=== PATIENT | female | born 1990 | race Caucasian/White ===

== ENCOUNTER 2017-02-26 16:17 | Emergency (ER) | payer BC, OTHER ==
--- NOTE | 2017-02-26 18:08 | ER Document Report ---
HPI - HPI Patient complains to provider of: dermal implant inflammation Onset: Other - several months Onset/Duration: Gradual Quality of pain: Throbbing Pain Level: 4 Context: 26-year-old female has 2 dermal subcutaneous implants supraclavicular right area. They have been there for over a year but recently the tried to change the tops and they have been inflamed ever since. She wants them out. Associated Symptoms: None Exacerbated by: Movement Relieved by: Denies Similar symptoms previously: No Recently seen / treated by doctor: No - ROS ROS below otherwise negative: Yes Systems Reviewed and Negative: Yes All other systems reviewed and negative - REPRODUCTIVE Reproductive: DENIES: : - DERM Skin Color: Normal Past Medical History - General Information source: Patient - Social History Smoking Status: Unknown if Ever Smoked Frequency of alcohol use: None Drug Abuse: None Lives with: Parents Family History: Reviewed & Not Pertinent - Medical History Medical History: Negative Renal/ Medical History: Denies: Hx Peritoneal Dialysis Past Surgical History: Reports: Hx Gastric Bypass Surgery - Immunizations Hx Diphtheria, Pertussis, Tetanus Vaccination: Yes Vertical Provider Document - CONSTITUTIONAL Agree With Documented VS: Yes Exam Limitations: No Limitations - INFECTION CONTROL TRAVEL OUTSIDE OF THE [place] IN LAST 30 DAYS: No - HEENT HEENT: Normocephalic - NECK Neck: Supple - RESPIRATORY O2 Sat by Pulse Oximetry: 100 - NEURO Level of Consciousness: Awake, Alert, Appropriate - DERM Integumentary: Warm, Dry Adult Front & Back Diagram: 1 - 2 dermal implants in this location Notes: inflamed skin surrounding the superior implant Course - Re-evaluation Re-evalutation: 02/26/17 19:29 Procedure: betadine prep, 1% lidocaine local infiltration, 2mm incision to get the 2 dermal implants out of the right supraclavicular skin, ns scrub, 4 x 4 dressing - Vital Signs Vital signs: Temp Pulse Resp BP Pulse Ox 97.9 F 92 18 168/91 H 100 02/26/17 16:33 02/26/17 16:33 02/26/17 16:33 02/26/17 16:33 02/26/17 16:33 Discharge - Discharge Clinical Impression: dermal implant removal, Inflammation Condition: Good Disposition: HOME, SELF-CARE Instructions: Cephalexin ([facility]), Infections ([facility]) Additional Instructions: warm compress antibiotics to er any concerns keep covered Please complete the patient satisfaction survey if you get one, and return it.. If you do not receive a survey, then you can go to the [facility] website, [email or web address] and place your comments about your very good care. Thank you very much. It was a pleasure being your medical provider today. Prescriptions: Cephalexin Monohydrate [Keflex 500 mg Capsule] 500 mg PO QID #28 capsule Referrals: ZOE OSORIO MD [Primary Care Provider] - Follow up as needed
[2017-02-26] MEDS ORDERED: CEPHALEXIN 500 MG CAPSULE PO ONE (19:28)
[2017-02-26 19:45] VITALS: BP 139/77
== END 2017-02-26 19:44 | disposition home or self-care (01) ==
LOC: ER 16:17
PROC: 0HC5XZZ Extirpation of Matter from Chest Skin, External Approach (ICD-10-PCS; principal; 2017-02-26)
DX: L08.9 Local infection of the skin and subcutaneous tissue, unspecified (principal); Z98.84 Bariatric surgery status
CPT/HCPCS: 99283

== ENCOUNTER 2018-02-22 17:42 | Emergency (ER) | payer OTHER, BC ==
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
[2018-02-22] MEDS ORDERED: HYDROCODONE/ACETAMINOPHEN 7.5-325 MG TABLET PO ONE (20:05)
--- NOTE | 2018-02-22 20:55 | RADIOLOGY REPORT (SQ) ---
EXAM DESCRIPTION: CT CERVICAL SPINE WITHOUT COMPLETED DATE/TIME: 02/22/2018 8:45 pm REASON FOR STUDY: Neck pain COMPARISON: None. TECHNIQUE: Axial images acquired through the cervical spine without intravenous contrast. Images re viewed with lung, soft tissue and bone windows. Reconstructed coronal and sagittal MPR images review ed. Images stored on PACS. All CT scanners at this facility use dose modulation, iterative reconstruction, and/or weight based d osing when appropriate to reduce radiation dose to as low as reasonably achievable (ALARA). [facility]: Dose Right [facility]: CareDose [facility]: Dose Right [facility]: Teradose 4D [facility]: [employer] RADIATION DOSE: CT Rad equipment meets quality standard of care and radiation dose reduction techniq ues were employed. CTDIvol: 20.3 mGy. DLP: 435 mGy-cm. mGy. LIMITATIONS: None. FINDINGS: ALIGNMENT: Anatomic. MINERALIZATION: Normal. VERTEBRAL BODIES: No fractures or dislocation. DISCS: No significant disc disease. FACETS, LATERAL MASSES, POSTERIOR ELEMENTS: No fractures. No dislocation. No acute findings. HARDWARE: None in the spine. VISUALIZED RIBS: No fractures. LUNG APICES AND SOFT TISSUES: No significant or acute findings. OTHER: No other significant finding. IMPRESSION: NO ACUTE OR SIGNIFICANT FINDINGS IN THE CERVICAL SPINE. TECHNICAL DOCUMENTATION: JOB ID: [id number] Quality ID # [id number]: Final reports with documentation of one or more dose reduction techniques (e.g., Au tomated exposure control, adjustment of the mA and/or kV according to patient size, use of iterative reconstruction technique) 2010 [employer]- All Rights Reserved Reading location - IP/workstation name: [email or web address]
[2018-02-22 21:54] VITALS: BP 134/80
== END 2018-02-22 21:54 | disposition home or self-care (01) ==
LOC: ER 17:42
DX: S02.2XXA Fracture of nasal bones, initial encounter for closed fracture (principal); M54.2 Cervicalgia; R51 Headache; R42 Dizziness and giddiness; V87.7XXA Person injured in collision between other specified motor vehicles (traffic), initial encounter; F17.200 Nicotine dependence, unspecified, uncomplicated
CPT/HCPCS: 70450; 70486; 72125; 99284

== ENCOUNTER 2018-10-20 16:11 | Emergency (ER) | payer OTHER, BC ==
--- NOTE | 2018-10-20 17:56 | RADIOLOGY REPORT (SQ) ---
EXAM DESCRIPTION: KNEE RIGHT 4 VIEWS COMPLETED DATE/TIME: 10/20/2018 5:44 pm REASON FOR STUDY: right anterior knee pain COMPARISON: None. NUMBER OF VIEWS: Four views. TECHNIQUE: AP, lateral, and both oblique radiographic images acquired of the right knee. LIMITATIONS: None. FINDINGS: MINERALIZATION: Normal. BONES: No acute fracture or dislocation. No worrisome bone lesions. No significant osteophytes. JOINT: No effusion. No chondrocalcinosis. OTHER: No other significant finding. IMPRESSION: NEGATIVE STUDY OF THE RIGHT KNEE. NO EXPLANATION FOR PAIN. TECHNICAL DOCUMENTATION: JOB ID: [id number] [employer]- All Rights Reserved Reading location - IP/workstation name: [email or web address]
[2018-10-20] MEDS ORDERED: ACETAMINOPHEN 325 MG TABLET PO ONE (18:11)
--- NOTE | 2018-10-20 18:34 | ER Document Report ---
HPI - HPI Time Seen by Provider: 10/20/18 17:07 Pain Level: 3 Notes: Patient is a 28-year-old female presenting with chief complaint of right anterior knee pain. Patient denies falling on the knee but states that she was carrying a heavy object at work when it swung down and struck her in the knee. She states this occurred yesterday. Pain has increased since then. - CONSTITUTIONAL Constitutional: DENIES: Fever, Chills - REPRODUCTIVE Reproductive: DENIES: : - MUSCULOSKELETAL Musculoskeletal: REPORTS: Extremity pain - right knee Past Medical History - General Information source: Patient - Social History Smoking Status: Current Every Day Smoker Frequency of alcohol use: None Drug Abuse: None Family History: Reviewed & Not Pertinent Patient has suicidal ideation: No Patient has homicidal ideation: No - Past Medical History Cardiac Medical History: Denies: Hx Coronary Artery Disease, Hx Heart Attack, Hx Hypertension Pulmonary Medical History: Denies: Hx Asthma, Hx Bronchitis, Hx COPD, Hx Pneumonia Neurological Medical History: Denies: Hx Cerebrovascular Accident, Hx Seizures Renal/ Medical History: Denies: Hx Peritoneal Dialysis Musculoskeletal Medical History: Denies Hx Arthritis Psychiatric Medical History: Reports: Hx Attention Deficit Hyperactivity Disorder Past Surgical History: Reports: Hx Abdominal Surgery - Gastric Bypass, Hx Gastric Bypass Surgery. Denies: Hx Hysterectomy - Immunizations Hx Diphtheria, Pertussis, Tetanus Vaccination: Yes Vertical Provider Document - CONSTITUTIONAL Notes: PHYSICAL EXAMINATION: GENERAL: Well-appearing, well-nourished and in no acute distress. HEAD: Atraumatic, normocephalic. EYES: Pupils equal round extraocular movements intact, conjunctiva are normal. ENT: Nares patent NECK: Normal range of motion LUNGS: No respiratory distress Musculoskeletal: Normal range of motion at knee, tenderness to palpation to anterior right knee, no crepitus or deformity noted. Normal dorsalis pedis pulse. NEUROLOGICAL: Normal speech, normal gait. PSYCH: Normal mood, normal affect. SKIN: Warm, Dry, normal turgor, no rashes or lesions noted. - INFECTION CONTROL TRAVEL OUTSIDE OF THE [place] IN LAST 30 DAYS: No Course - Re-evaluation Re-evalutation: X-rays negative for any acute findings to include fracture or dislocation. Patient will be placed in Fernando wrap and crutches. Patient encouraged to follow- up with primary care or orthopedics if her pain is not improving over the next 3 to 5 days. - Vital Signs Vital signs: Temp Pulse Resp BP Pulse Ox 98.2 F 93 16 152/94 H 99 10/20/18 16:19 10/20/18 16:19 10/20/18 16:19 10/20/18 16:19 10/20/18 16:19 Discharge - Discharge Clinical Impression: Knee contusion Condition: Stable Disposition: HOME, SELF-CARE Additional Instructions: Contusion Your injury has resulted in a contusion -- a crushing of the deep tissues. No injury to important structures was detected during the physician's exam. Contusions vary in the amount of pain they cause, and in the length of time required for healing. Typically, the area will become bruised, and will remain painful to touch for two or three weeks. However, most patients are back to working and playing within a few days. After the initial period of rest and cold-packs, your symptoms (together with the doctor's recommendations) will determine how rapidly you can get back to full activity. Usually this means "do what feels okay, but don't do things that hurt." If re-examination was recommended, it's important to follow up as instructed. Call the doctor or return any time if pain increases, if swelling becomes severe, if you develop numbness or weakness in an injured extremity, or if any other alarming symptoms occur. Ice & Elevation Apply ice packs frequently against the painful area. Many different schedules are recommended, such as "20 minutes on, 20 minutes off" or "one hour ice, two hours rest." If you need to work, you may need to go longer between ice treatments. You should plan to have the area ice packed AT LEAST one-fourth of the time. The ice should be applied over the wrap, tape, or splint, or over a layer of cloth -- not directly against the skin. Some ice bags have a built-in cloth and can be put directly on the skin. Your injured part should be elevated as much as possible over the next 48 hours. Try to keep the injury above the level of the heart. Avoid use of the injured area. Elevation and rest will decrease the swelling. Ibuprofen Ibuprofen is an excellent, safe drug for pain control. In addition, it has potent antiinflammatory effects which are beneficial, especially in the treatment of injuries, arthritis, or tendonitis. It's best to take ibuprofen with food. Persons with ulcer disease or allergy to aspirin should notify their physician of this before taking ibuprofen. Take the medication exactly as prescribed. Don't take additional doses unless instructed to do so by your doctor. If you develop wheezing, shortness of breath, hives, faintness, stomach pain, vomiting, or dark black stools, return for re-evaluation at once. The x-rays were negative for any fracture or dislocation. Please take ibuprofen [id number] as directed to help with pain and inflammation. Forms: Return to Work Referrals: MARIAAM LOWRY, [ACTIVE STAFF] - Follow up as needed
[2018-10-20 18:42] VITALS: BP 159/93
== END 2018-10-20 18:48 | disposition home or self-care (01) ==
LOC: ER 16:11
DX: S80.00XA Contusion of unspecified knee, initial encounter (principal); M25.561 Pain in right knee; W20.8XXA Other cause of strike by thrown, projected or falling object, initial encounter; Y93.89 Activity, other specified; Y99.0 Civilian activity done for income or pay; F17.200 Nicotine dependence, unspecified, uncomplicated; Z98.84 Bariatric surgery status
CPT/HCPCS: 99283

== ENCOUNTER 2018-11-25 20:50 | Emergency (ER) | payer BC, OTHER ==
[2018-11-25 22:25] LABS: ABSOLUTE EOSINOPHILS # (AUTO) 0.3 10^3/uL (0.0-0.6); ABSOLUTE MONOCYTES (AUTO) 0.6 10^3/uL (0.1-1.4); ABSOLUTE NEUT (AUTO) 4.1 10^3/uL (1.7-8.2); BASOPHILS % (AUTO) 0.6 % (0-2); EOSINOPHILS % (AUTO) 3.8 % (0-6); HEMATOCRIT 36.8 % (36.0-47.0); HEMOGLOBIN 12.4 g/dL (12.0-15.5); LYMPHOCYTES % (AUTO) 36.9 % (13-45); MEAN CORPUSCULAR HEMOGLOBIN 28.4 pg (27.0-33.4); MEAN CORPUSCULAR HGB CONC 33.6 g/dL (32.0-36.0); MEAN CORPUSCULAR VOLUME 85 fl (80-97); RED BLOOD COUNT 4.36 10^6/uL (3.72-5.28); RED CELL DISTRIBUTION WIDTH 16.2 % (11.5-14.0); SEGMENTED NEUTROPHILS % (AUTO) 51.7 % (42-78); TOTAL CELLS COUNTED % (AUTO) 100 %
[2018-11-25 22:54] LABS: PLATELET COUNT 251 10^3/uL (150-450)
[2018-11-25] MEDS ORDERED: ONDANSETRON HCL INJ/PF 4 MG/2 ML SDV IV ONE (23:03)
[2018-11-25] MEDS ORDERED: MORPHINE SULFATE 10 MG/ML INJ IV ONE (23:04)
--- NOTE | 2018-11-25 23:05 | ER Document Report ---
ED GI/ - General Chief Complaint: Flank Pain Stated Complaint: LEFT FLANK PAIN WITH DIFFICULTY URINATING Time Seen by Provider: 11/25/18 22:23 Primary Care Provider: ZOE OSORIO MD [Primary Care Provider] - Follow up as needed Mode of Arrival: Ambulatory Information source: Patient Notes: Patient presents complaining of left flank pain that started today and difficu lty voiding. Patient does complain of nausea but denies any vomiting. Patient denies any fever. Patient reports a distant history of kidney stones and states that this pain has felt similar to when she had stones in the past. TRAVEL OUTSIDE OF THE [place] IN LAST 30 DAYS: No - HPI Patient complains to provider of: Flank pain. No: Vomiting Onset: This morning Timing/Duration: Persistent Quality of pain: Sharp Pain Level: 4 Location: Left flank Vaginal bleeding (Compared to normal period): None Menstrual period history: denies: Associated symptoms: Dysuria, Nausea. 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 Denies: Hx Hysterectomy - Immunizations Hx Diphtheria, Pertussis, Tetanus Vaccination: Yes Review of Systems - Review of Systems Constitutional: No symptoms reported. denies: Fever EENT: No symptoms reported Cardiovascular: No symptoms reported Respiratory: No symptoms reported. denies: Cough Gastrointestinal: Nausea. denies: Vomiting Genitourinary: Dysuria, Flank pain Female Genitourinary: denies: Musculoskeletal: Back pain Skin: No symptoms reported Hematologic/Lymphatic: No symptoms reported Neurological/Psychological: No symptoms reported Physical Exam - Vital signs Vitals: Temp Pulse Resp BP Pulse Ox 98.2 F 85 20 154/116 H 98 11/25/18 21:02 11/25/18 21:02 11/25/18 21:02 11/25/18 21:02 11/25/18 21:02 - General General appearance: Appears well, Alert In distress: None - HEENT Head: Normocephalic, Atraumatic Eyes: Normal Conjunctiva: Normal Nasal: Normal Mouth/Lips: Normal Neck: Normal, Supple - Respiratory Respiratory status: No respiratory distress Chest status: Nontender Breath sounds: Normal. No: Rales, Rhonchi, Stridor, Wheezing Chest palpation: Normal - Cardiovascular Rhythm: Regular Heart sounds: S1 appreciated, S2 appreciated - Abdominal Inspection: Morbidly Obese Distension: No distension Bowel sounds: Normal Tenderness: Tender - L lateral side Organomegaly: No organomegaly - Back Back: CVA tenderness - left - Extremities General upper extremity: Normal inspection, Normal strength General lower extremity: Normal inspection, Normal strength - Neurological Neuro grossly intact: Yes Cognition: Normal [place] Coma Scale Eye Opening: Spontaneous Swathi Coma Scale Verbal: Oriented Swathi Coma Scale Motor: Obeys Commands [place] Coma Scale Total: 15 - Psychological Associated symptoms: Normal affect, Normal mood - Skin Skin Temperature: Warm Skin Moisture: Dry Skin Color: Normal Course - Re-evaluation Re-evalutation: 11/26/18 00:54 Patient complains of continued left flank pain at this time. Patient does have findings worrisome for UTI. No definite ureteral stone noted on CT scan. Patient with no fever, no leukocytosis and stable vital signs. We will culture her urine at this time and treat for pyelonephritis. Good return precautions discussed with patient. - Vital Signs Vital signs: Temp Pulse Resp BP Pulse Ox 97.6 F 67 16 160/92 H 99 11/26/18 01:50 11/26/18 01:50 11/26/18 01:50 11/26/18 01:50 11/26/18 01:50 - Laboratory Result Diagrams: 11/25/18 21:45 11/25/18 22:44 Laboratory results interpreted by me: 11/25/18 11/25/18 11/25/18 21:45 22:05 22:44 RDW 16.2 H Chloride 108 H BUN 6 L Creatinine 0.49 L Urine Protein 30 H Urine Blood LARGE H Ur Leukocyte Esterase MODERATE H 11/26/18 00:54 Labs- Entire Visit 11/25/18 11/25/18 11/25/18 21:45 21:45 21:45 WBC 8.0 RBC 4.36 Hgb 12.4 Hct 36.8 MCV 85 MCH 28.4 MCHC 33.6 RDW 16.2 H Plt Count 251 Seg Neutrophils % 51.7 Lymphocytes % 36.9 Monocytes % 7.0 Eosinophils % 3.8 Basophils % 0.6 Absolute Neutrophils 4.1 Absolute Lymphocytes 3.0 Absolute Monocytes 0.6 Absolute Eosinophils 0.3 Absolute Basophils 0.0 Sodium Cancelled Potassium Cancelled Chloride Cancelled Carbon Dioxide Cancelled Anion Gap Cancelled BUN Cancelled Creatinine Cancelled Est GFR ( Amer) Cancelled Est GFR (Non-Af Amer) Cancelled Glucose Cancelled Calcium Cancelled Total Bilirubin Cancelled Direct Bilirubin Cancelled Neonat Total Bilirubin Cancelled Neonat Direct Bilirubin Cancelled Neonat Indirect Bili Cancelled AST Cancelled ALT Cancelled Alkaline Phosphatase Cancelled Total Protein Cancelled Albumin Cancelled Lipase Cancelled Serum HCG, Qual NEGATIVE Urine Color Urine Appearance Urine pH Ur Specific [place] Urine Protein Urine Glucose (UA) Urine Ketones Urine Blood Urine Nitrite Urine Bilirubin Urine Urobilinogen Ur Leukocyte Esterase Urine WBC (Auto) Urine RBC (Auto) Urine WBC Clumps Squamous Epi Cells Auto Urine Mucus (Auto) Urine Ascorbic Acid 11/25/18 11/25/18 22:05 22:44 WBC RBC Hgb Hct MCV MCH MCHC RDW Plt Count Seg Neutrophils % Lymphocytes % Monocytes % Eosinophils % Basophils % Absolute Neutrophils Absolute Lymphocytes Absolute Monocytes Absolute Eosinophils Absolute Basophils Sodium 138.8 Potassium 3.9 Chloride 108 H Carbon Dioxide 23 Anion Gap 8 BUN 6 L Creatinine 0.49 L Est GFR ( Amer) > 60 Est GFR (Non-Af Amer) > 60 Glucose 86 Calcium 8.8 Total Bilirubin 0.4 Direct Bilirubin 0.3 Neonat Total Bilirubin Not Reportable Neonat Direct Bilirubin Not Reportable Neonat Indirect Bili Not Reportable AST 18 ALT 29 Alkaline Phosphatase 57 Total Protein 6.4 Albumin 3.6 Lipase 106.8 Serum HCG, Qual Urine Color YELLOW Urine Appearance CLOUDY Urine pH 6.0 Ur Specific [place] 1.015 Urine Protein 30 H Urine Glucose (UA) NEGATIVE Urine Ketones NEGATIVE Urine Blood LARGE H Urine Nitrite NEGATIVE Urine Bilirubin NEGATIVE Urine Urobilinogen NEGATIVE Ur Leukocyte Esterase MODERATE H Urine WBC (Auto) 23 Urine RBC (Auto) >182 Urine WBC Clumps MANY Squamous Epi Cells Auto 8 Urine Mucus (Auto) OCC Urine Ascorbic Acid NEGATIVE - Diagnostic Test Radiology reviewed: Reports reviewed Discharge - Discharge Clinical Impression: Pyelonephritis, Flank pain, Nausea Condition: Stable Disposition: HOME, SELF-CARE Instructions: Acetaminophen, Antibiotic Therapy ([facility]), Antinausea Medication ([facility]), Pyelonephritis ([facility]), Rocephin ([facility]) Additional Instructions: Return immediately for any new or worsening symptoms Followup with your primary care provider, call tomorrow to make a followup appointment Urine culture is pending, will call if you need any different treatment Prescriptions: Cefdinir [Omnicef 300 mg Capsule] 1 cap PO BID #20 capsule Ondansetron HCl [Zofran 4 mg Tablet] 1 - 2 tab PO Q6 PRN #15 tablet PRN Reason: Forms: Return to Work Referrals: ZOE OSORIO MD [Primary Care Provider] - Follow up as needed
[2018-11-25 23:08] LABS: ALANINE AMINOTRANSFERASE 29 U/L (9-52); ALBUMIN 3.6 g/dL (3.5-5.0); ALKALINE PHOSPHATASE 57 U/L (38-126); ANION GAP 8 (5-19); ASPARTATE AMINO TRANSFERASE 18 U/L (14-36); BILIRUBIN,DIRECT 0.3 mg/dL (0.0-0.4); BILIRUBIN,TOTAL 0.4 mg/dL (0.2-1.3); BLOOD UREA NITROGEN 6 mg/dL (7-20); CALCIUM 8.8 mg/dL (8.4-10.2); CARBON DIOXIDE 23 mmol/L (22-30); CHLORIDE 108 mmol/L (98-107); GLUCOSE 86 mg/dL (75-110); LIPASE 106.8 U/L (23-300); POTASSIUM 3.9 mmol/L (3.6-5.0); SODIUM 138.8 mmol/L (137-145); TOTAL PROTEIN 6.4 g/dL (6.3-8.2)
[2018-11-25 23:30] LABS: APPEARANCE,URINE CLOUDY; BILIRUBIN,URINE NEGATIVE (NEGATIVE); COLOR,URINE YELLOW; GLUCOSE, URINE NEGATIVE (NEGATIVE); KETONES,URINE NEGATIVE (NEGATIVE); LEUKOCYTE ESTERASE,URINE MODERATE (NEGATIVE); NITRITE,URINE NEGATIVE (NEGATIVE); PROTEIN,URINE 30 mg/dL (NEGATIVE); URINE SPECIFIC GRAVITY 1.015; UROBILINOGEN,URINE NEGATIVE mg/dL (<2.0)
--- NOTE | 2018-11-26 00:40 | RADIOLOGY REPORT (SQ) ---
EXAM DESCRIPTION: CT ABDOMEN PELVIS WITHOUT IV CONTRAST COMPLETED DATE/TME: 11/25/2018 23:03 CLINICAL HISTORY: 28 years Female L flank pain, diff voiding. HCG NEGATIVE COMPARISON: None. TECHNIQUE: Contiguous axial images obtained through the abdomen and pelvis without IV contrast. Reformatted images obtained. This exam was performed according to our department optimization program which includes automated exposure control, adjustment of the mA and/or kv according to patient size and/or use of iterative reconstruction technique. FINDINGS: The lung bases are clear. The liver appears unremarkable. The spleen and pancreas appear unremarkable. No adrenal masses. The kidneys appear unremarkable. No hydronephrosis or definite ureteral calculi. The gallbladder is visualized. No aneurysmal dilatation of the aorta. No bowel obstruction. Postsurgical changes in the upper abdomen suggesting gastric bypass No free pelvic fluid. Unremarkable appendix. IMPRESSION: No acute intra-abdominal abnormality is identified. Specifically no evidence of left hydronephrosis or obstructing stone
[2018-11-26] MEDS ORDERED: CEFTRIAXONE 1 GM/D5W RTU 1 GM/50 ML RTUPB IV ONE (00:53)
[2018-11-26] MEDS ORDERED: HYDROCODONE/ACETAMINOPHEN 5-325 MG (6 TAB/ER DISP) PO PRN (01:41)
[2018-11-26 01:53] VITALS: BP 160/92
== END 2018-11-26 01:58 | disposition home or self-care (01) ==
LOC: ER 20:50
DX: N12 Tubulo-interstitial nephritis, not specified as acute or chronic (principal); R10.9 Unspecified abdominal pain; R30.0 Dysuria; R11.0 Nausea; M54.9 Dorsalgia, unspecified; F17.200 Nicotine dependence, unspecified, uncomplicated; E66.01 Morbid (severe) obesity due to excess calories; Z98.84 Bariatric surgery status
CPT/HCPCS: 99284; 96375; 96365; 36415; 87086; 83690; 84703; 85025; 87088; 80053; 81001; 74176; J2270; J2405; J0696

== ENCOUNTER 2019-06-08 07:12 | Emergency (ER) | payer BC, MEDICAID ==
--- NOTE | 2019-06-08 08:13 | ER Document Report ---
Entered by OLEG MUNROE SCRIBE 06/08/19 0800 Acting as scribe for:FEMI JON MD ED General - General Chief Complaint: Cough Stated Complaint: COUGH,CONGESTION,FEVER Time Seen by Provider: 06/08/19 07:47 Primary Care Provider: [facility] [Provider Group] - Follow up as needed Mode of Arrival: Ambulatory Information source: Patient Notes: This 28 year old female patient presents to the ED today with complaints of a fever and "coughing fits" for the past x3-4 days. Patient states that she has had a fever of 103 F for the past few days and that she took Tylenol to keep it down. Patient notes that she brings up clear sputum when she coughs. Patient reports that she is x14 weeks and she has not had a flu shot this year. TRAVEL OUTSIDE OF THE [place] IN LAST 30 DAYS: No - Related Data Allergies/Adverse Reactions: No Known Allergies Allergy (Verified 11/25/18 20:55) Home Medications: atenolol Past Medical History - General Information source: Patient - Social History Smoking Status: Former Smoker - quit approximately x15 weeks ago Cigarette use (# per day): No Occupation: [employer] Family History: Reviewed & Not Pertinent Patient has suicidal ideation: No Patient has homicidal ideation: No Psychiatric Medical History: Reports: Hx Anxiety, Hx Attention Deficit Hyperactivity Disorder, Hx Depression, Hx Post Traumatic Stress Disorder Past Surgical History: Reports: Hx Gastric Bypass Surgery - 2012 - Immunizations Hx Diphtheria, Pertussis, Tetanus Vaccination: Yes Review of Systems - Review of Systems Constitutional: See HPI, Fever EENT: No symptoms reported Cardiovascular: No symptoms reported Respiratory: See HPI, Cough, Sputum Gastrointestinal: No symptoms reported Genitourinary: No symptoms reported Female Genitourinary: See HPI, - 14 weeks Musculoskeletal: No symptoms reported Skin: No symptoms reported Hematologic/Lymphatic: No symptoms reported Neurological/Psychological: No symptoms reported -: Yes All other systems reviewed and negative Physical Exam - Vital signs Vitals: Temp Pulse Resp BP Pulse Ox 97.9 F 110 H 12 146/78 H 97 06/08/19 07:21 06/08/19 07:21 06/08/19 07:21 06/08/19 07:21 06/08/19 07:21 - General General appearance: Alert - HEENT Head: Normocephalic, Atraumatic Eyes: Normal Pupils: PERRL Tympanic membrane: Normal Pharynx: Normal - Respiratory Respiratory status: No respiratory distress Chest status: Nontender Breath sounds: Rhonchi, Wheezing Chest palpation: Normal - Cardiovascular Rhythm: Regular Heart sounds: Normal auscultation Murmur: No - Abdominal Inspection: Obese Distension: No distension Bowel sounds: Normal Tenderness: Nontender Organomegaly: No organomegaly - Back Back: Normal, Nontender - Extremities General upper extremity: Normal inspection General lower extremity: Normal inspection - Neurological Neuro grossly intact: Yes - Psychological Associated symptoms: Normal affect, Normal mood - Skin Skin Temperature: Warm Skin Moisture: Dry Skin Color: Normal Course - Vital Signs Vital signs: Temp Pulse Resp BP Pulse Ox 97.9 F 110 H 12 146/78 H 97 06/08/19 07:33 06/08/19 07:21 06/08/19 07:33 06/08/19 07:21 06/08/19 07:33 - Laboratory Laboratory results interpreted by me: 06/08/19 08:19 Ur Leukocyte Esterase TRACE H Discharge - Discharge Clinical Impression: Influenza-like illness Condition: Stable Disposition: HOME, SELF-CARE Additional Instructions: Viral Syndrome The physician has diagnosed a viral infection. Viruses not only cause "colds," but can cause many different symptoms including generalized aching, fever, headache, cough, diarrhea, nausea, vomiting, and fatigue. The treatment, for the most part, is simply relief of symptoms. This means that antibiotics are usually not given. Rest, fluids, pain medications and, occasionally, medication for the specific symptoms that are most bothersome will be prescribed. Use good handwashing to avoid passing the virus to others. Shared toys should be cleaned with disinfectant. Clean the toilets, sinks, and counter surfaces in bathrooms. Launder clothing in hot water. Contact the physician if you develop any new or unusual symptoms such as severe headache, stiff neck, high fever, chest pain, productive cough, or short ness of breath. You should be rechecked if you don't see marked improvement within seven to 10 days. You have an influenza-like viral respiratory illness. The flu test was negative for influenza type a and type B. The management for flulike illnesses and influenza is the same. You should drink plenty of fluids and get plenty of rest. Take Tylenol every 4 hours for fever, and body aches. Take an vajw-rze-mbyeexq cough suppressant such as Delsym DM. Follow-up with your [facility] doctor if not improving. RETURN TO THE EMERGENCY ROOM IF ANY NEW OR WORSENING SYMPTOMS. Referrals: [facility] [Provider Group] - Follow up as needed Scribe Attestation: 06/08/19 08:37 I personally performed the services described in the documentation, reviewed and edited the documentation which was dictated to the scribe in my presence, and it accurately records my words and actions. I personally performed the services described in the documentation, reviewed and edited the documentation which was dictated to the scribe in my presence, and it accurately records my words and actions.
[2019-06-08 08:51] LABS: AMORPHOUS SEDIMENT,URINE TRACE /HPF; APPEARANCE,URINE CLEAR; BILIRUBIN,URINE NEGATIVE (NEGATIVE); COLOR,URINE YELLOW; GLUCOSE, URINE NEGATIVE (NEGATIVE); KETONES,URINE NEGATIVE (NEGATIVE); LEUKOCYTE ESTERASE,URINE TRACE (NEGATIVE); NITRITE,URINE NEGATIVE (NEGATIVE); PROTEIN,URINE NEGATIVE (NEGATIVE); URINE SPECIFIC GRAVITY 1.019; UROBILINOGEN,URINE NEGATIVE mg/dL (<2.0)
[2019-06-08 09:22] LABS: A TYPE INFLUENZA AG NEGATIVE (NEGATIVE); B INFLUENZA AG NEGATIVE (NEGATIVE)
[2019-06-08 10:04] VITALS: BP 133/80
== END 2019-06-08 10:08 | disposition home or self-care (01) ==
LOC: ER 07:12
DX: J11.1 Influenza due to unidentified influenza virus with other respiratory manifestations (principal); R05 Cough; R09.81 Nasal congestion; R50.9 Fever, unspecified; Z87.891 Personal history of nicotine dependence; E66.9 Obesity, unspecified
CPT/HCPCS: 81001; 87804; 99283

== ENCOUNTER 2019-08-03 18:16 | Outpatient (CLI) | payer MEDICAID ==
[2019-08-03 18:50] LABS: APPEARANCE,URINE CLEAR; BILIRUBIN,URINE NEGATIVE (NEGATIVE); COLOR,URINE YELLOW; GLUCOSE, URINE NEGATIVE (NEGATIVE); KETONES,URINE NEGATIVE (NEGATIVE); LEUKOCYTE ESTERASE,URINE NEGATIVE (NEGATIVE); NITRITE,URINE NEGATIVE (NEGATIVE); PROTEIN,URINE NEGATIVE (NEGATIVE); URINE SPECIFIC GRAVITY 1.013; UROBILINOGEN,URINE NEGATIVE mg/dL (<2.0)
[2019-08-03 19:04] LABS: URINE BARBITURATES SCREEN NEGATIVE; URINE COCAINE SCREEN NEGATIVE; URINE MARIJUANA (THC) SCREEN NEGATIVE; URINE METHADONE SCREEN NEGATIVE; URINE PHENCYCLIDINE SCREEN NEGATIVE
[2019-08-03 19:14] LABS: URINE BENZODIAZEPINES SCREEN UNCONFIRMED POSITIVE
[2019-08-03 19:15] LABS: URINE AMPHETAMINES SCREEN UNCONFIRMED POSITIVE
[2019-08-09 12:46] LABS: AMPHETAMINE CONFIRMATION UR Positive (.); BENZODIAZEPINE CONFIRMATION UR Positive (.)
== END 2019-08-03 19:46 | disposition home or self-care (01) ==
LOC: LC 18:16
PROVIDERS: ATTEND Obstetrics & Gynecology Gynecology
PROC: 4A1HXCZ Monitoring of Products of Conception, Cardiac Rate, External Approach (ICD-10-PCS; principal; 2019-08-03)
DX: O36.8120 Decreased fetal movements, second trimester, not applicable or unspecified (principal); Z3A.26 26 weeks gestation of pregnancy
CPT/HCPCS: 59899; 81001; 80307 ×2; 80361; G0480 ×3

== ENCOUNTER → 2019-10-06 | Outpatient (CLI) | payer MEDICAID ==
--- NOTE | 2019-10-06 19:32 | Non Stress Test Report ---
Non Stress Test Datetime Report Generated by CPN: 10/06/2019 19:31 DEMOGRAPHIC EGA NST: 31.2 VITAL SIGNS Temperature - NST: 99.1 MONITORING Monitor Explained: Monitor Explained; Test Explained; Patient Verbalized Understanding Time on Monitor: 10/06/2019 13:05 Time off Monitor: 10/06/2019 14:17 NST Duration: 72 NST INTERVENTIONS NST Interventions: PO Hydration; Reposition Patient Physician Notified NST: A Mijares CNM BABY A: [id number] BABY A Movement : Present Contraction Frequency : rare FHR Baseline : 145 Accelerations : 15X15 Decelerations : None Variability : Moderate 6-25bpm NST Review: Meets Criteria for Reactive NST NST Review and Verified By : AZUCENA Guerra Results: Reactive NST REPORT Report Trigger: Send Report
== END ==
LOC: LC 12:42
PROVIDERS: ATTEND Obstetrics & Gynecology
DX: Z34.93 Encounter for supervision of normal pregnancy, unspecified, third trimester (principal)

== ENCOUNTER 2019-10-20 15:54 | Outpatient (CLI) | payer MEDICAID ==
[2019-10-20] MEDS ORDERED: METOPROLOL TARTRATE 25 MG TABLET PO ONE ×2 (17:15→17:55)
== END 2019-10-20 18:48 | disposition home or self-care (01) ==
LOC: LC 15:54
PROVIDERS: ATTEND Obstetrics & Gynecology
DX: O10.913 Unspecified pre-existing hypertension complicating pregnancy, third trimester (principal); Z3A.35 35 weeks gestation of pregnancy; Z87.891 Personal history of nicotine dependence
CPT/HCPCS: 59025; J3490

== ENCOUNTER 2019-10-27 15:27 | Outpatient (CLI) | payer MEDICAID ==
[2019-10-27 16:08] LABS: APPEARANCE,URINE CLEAR; BILIRUBIN,URINE NEGATIVE (NEGATIVE); COLOR,URINE STRAW; GLUCOSE, URINE NEGATIVE (NEGATIVE); KETONES,URINE NEGATIVE (NEGATIVE); URINE SPECIFIC GRAVITY 1.004
[2019-10-27 16:09] LABS: LEUKOCYTE ESTERASE,URINE NEGATIVE (NEGATIVE); NITRITE,URINE NEGATIVE (NEGATIVE); PROTEIN,URINE NEGATIVE (NEGATIVE); UROBILINOGEN,URINE NEGATIVE mg/dL (<2.0)
[2019-10-27 16:16] LABS: HEMATOCRIT 31.5 % (36.0-47.0); HEMOGLOBIN 11.1 g/dL (12.0-15.5); MEAN CORPUSCULAR HEMOGLOBIN 29.7 pg (27.0-33.4); MEAN CORPUSCULAR HGB CONC 35.2 g/dL (32.0-36.0); MEAN CORPUSCULAR VOLUME 84 fl (80-97); PLATELET COUNT 233 10^3/uL (150-450); RED BLOOD COUNT 3.73 10^6/uL (3.72-5.28); RED CELL DISTRIBUTION WIDTH 17.2 % (11.5-14.0); WHITE BLOOD COUNT 9.2 10^3/uL (4.0-10.5)
[2019-10-27 16:30] LABS: URINE AMPHETAMINES SCREEN NEGATIVE; URINE BARBITURATES SCREEN NEGATIVE; URINE COCAINE SCREEN NEGATIVE; URINE MARIJUANA (THC) SCREEN NEGATIVE; URINE METHADONE SCREEN NEGATIVE; URINE PHENCYCLIDINE SCREEN NEGATIVE
[2019-10-27 16:34] LABS: UR PRO/CREAT RATIO RESULT 1.6 mg/mg (0.0-0.2); URINE CREATININE 19.9 mg/dL (16-327); URINE PROTEIN 31.1 mg/dL (<12)
[2019-10-27 16:37] LABS: URINE BENZODIAZEPINES SCREEN UNCONFIRMED POSITIVE
[2019-10-27 16:42] LABS: ALKALINE PHOSPHATASE 97 U/L (38-126); ANION GAP 5 (5-19); ASPARTATE AMINO TRANSFERASE 22 U/L (14-36); BILIRUBIN,TOTAL 0.4 mg/dL (0.2-1.3); BLOOD UREA NITROGEN 13 mg/dL (7-20); CARBON DIOXIDE 25 mmol/L (22-30); CHLORIDE 102 mmol/L (98-107); GLUCOSE 74 mg/dL (75-110); POTASSIUM 3.9 mmol/L (3.6-5.0); TOTAL PROTEIN 5.9 g/dL (6.3-8.2); URIC ACID 3.6 mg/dL (2.5-6.2)
--- NOTE | 2019-10-27 17:03 | RADIOLOGY REPORT (SQ) ---
EXAM DESCRIPTION: U/S PROFILE W/O STRESS IMAGES COMPLETED DATE/TIME: 10/27/2019 4:54 pm REASON FOR STUDY: NR NST COMPARISON: None. TECHNIQUE: Limited melgar-scale realtime and static images of the fetus to measure specified parameter s. LIMITATIONS: None. FINDINGS: HEART RATE: 128 beats per minute. TALIA: 16.5 cm. BREATHING MOVEMENT: 2 points. MOVEMENT: 2 points. POSTURE AND TONE: 2 points. QUALITATIVE TALIA: 2 points. OTHER: No other significant finding. IMPRESSION: BIOPHYSICAL PROFILE: 01/22. Trimester of : Third - 28 weeks to delivery COMMENT: BREATHING MOVEMENTS: 2 POINTS: PRESENT 0 POINTS: ABSENT MOTION: 2 POINTS: PRESENT 0 POINTS: ABSENT TONE: 2 POINTS: PRESENT 0 POINTS: ABSENT AMNIOTIC FLUID VOLUME: 2 POINTS: LARGEST POCKET GREATER THAN 2 CM DEPTH. 0 POINTS: NO POCKET OF 2 CM. TECHNICAL DOCUMENTATION: JOB ID: [id number] 2010 [employer]- All Rights Reserved Reading location - IP/workstation name: [email or web address]
[2019-10-27] MEDS ORDERED: ACETAMINOPHEN 325 MG TABLET PO PRN (17:07)
[2019-10-27] MEDS ORDERED: ACETAMINOPHEN 325 MG TABLET ONE (17:16)
[2019-10-27] MEDS ORDERED: BETAMET ACET/BETAMET NA INJ 6 MG/1 ML ONE (17:16)
[2019-10-27] MEDS ORDERED: BETAMET ACET/BETAMET NA INJ 6 MG/1 ML IM ONE (17:20)
--- NOTE | 2019-10-27 17:37 | Non Stress Test Report ---
Non Stress Test Datetime Report Generated by CPN: 10/27/2019 17:36 DEMOGRAPHIC Test Number: 3 Test Number: 2 EGA NST: 36.3 EGA NST: 35.3 INDICATION Indication for Study (NST) Other: Provider Order VITAL SIGNS Temperature - NST: 98.4 Temperature - NST: 98.1 Pulse - NST: 78 Pulse - NST: 77 RESP - NST: 20 RESP - NST: 18 NBPSYS NST: 169 NBPSYS NST: 177 NBPDIA NST: 88 NBPDIA NST: 87 (Annotations: Data stored by [facility] on behalf of user) MONITORING Monitor Explained: Monitor Explained; Test Explained; Patient Verbalized Understanding; Other Monitor Explained: Monitor Explained; Test Explained; Patient Verbalized Understanding Time on Monitor: 10/27/2019 15:41 Time on Monitor: 10/20/2019 16:11 Time off Monitor: 10/27/2019 17:16 Time off Monitor: 10/20/2019 16:35 NST Duration: 95 NST Duration: 24 NST INTERVENTIONS NST Interventions: PO Hydration; Reposition Patient; For Biophysical Profile NST Interventions: PO Hydration Physician Notified NST: Keysha Alicia Physician Notified NST: KULDIP Oneal BABY A: [id number] BABY A Movement : Present Movement : Present Contraction Frequency : 0 Contraction Frequency : None FHR Baseline : 130 FHR Baseline : 135 Accelerations : 15X15 Accelerations : 15X15 Decelerations : None Decelerations : None Variability : Moderate 6-25bpm Variability : Moderate 6-25bpm NST Review: Meets Criteria for Reactive NST NST Review: Meets Criteria for Reactive NST NST Review and Verified By : AZUCENA LewisT Results: Reactive NST Results: Reactive NST COMMENTS NST Comments: BPP 8/8 NST REPORT Report Trigger: Send Report
== END 2019-10-27 17:42 | disposition home or self-care (01) ==
LOC: LC 15:27
PROVIDERS: ATTEND Obstetrics & Gynecology
DX: O16.3 Unspecified maternal hypertension, third trimester (principal); Z3A.36 36 weeks gestation of pregnancy
CPT/HCPCS: 94760; 96372; 36415; 84156; 84550; 82570; 85027; 81005; 80053; 87081; 80307; 76819; 59025; J3490; J0702

== ENCOUNTER 2019-10-29 16:59 | Inpatient (IN) | payer MEDICAID ==
[2019-10-29] MEDS ORDERED: BUTALB/ACETAMINOPHEN/CAFFEINE 1 TAB EACH ONE ×2 (17:08→17:09)
[2019-10-29] MEDS ORDERED: BUTALB/ACETAMINOPHEN/CAFFEINE 1 TAB EACH PO ONE (17:10)
[2019-10-29] MEDS ORDERED: NIFEDIPINE 10 MG CAPSULE ONE ×2 (17:32→20:11)
[2019-10-29] MEDS ORDERED: NIFEDIPINE 10 MG CAPSULE PO ONE (17:34)
[2019-10-29] MEDS ORDERED: HYDRALAZINE HCL INJ/PF 20 MG/1 ML SDV ONE (17:42)
[2019-10-29] MEDS ORDERED: HYDRALAZINE HCL INJ/PF 20 MG/1 ML SDV IV ONE (17:49)
[2019-10-29 17:56] LABS: APPEARANCE,URINE CLOUDY; BILIRUBIN,URINE NEGATIVE (NEGATIVE); COLOR,URINE YELLOW; GLUCOSE, URINE NEGATIVE (NEGATIVE); KETONES,URINE NEGATIVE (NEGATIVE); LEUKOCYTE ESTERASE,URINE TRACE (NEGATIVE); NITRITE,URINE NEGATIVE (NEGATIVE); PROTEIN,URINE 100 mg/dL (NEGATIVE); UROBILINOGEN,URINE NEGATIVE mg/dL (<2.0)
[2019-10-29 18:11] LABS: ABSOLUTE EOSINOPHILS # (AUTO) 0.1 10^3/uL (0.0-0.6); ABSOLUTE MONOCYTES (AUTO) 0.6 10^3/uL (0.1-1.4); ABSOLUTE NEUT (AUTO) 7.1 10^3/uL (1.7-8.2); BASOPHILS % (AUTO) 0.2 % (0-2); EOSINOPHILS % (AUTO) 0.7 % (0-6); HEMATOCRIT 31.9 % (36.0-47.0); HEMOGLOBIN 11.1 g/dL (12.0-15.5); MEAN CORPUSCULAR HEMOGLOBIN 29.9 pg (27.0-33.4); MEAN CORPUSCULAR HGB CONC 34.9 g/dL (32.0-36.0); MEAN CORPUSCULAR VOLUME 86 fl (80-97); MONOCYTES % (AUTO) 5.9 % (3-13); PLATELET COUNT 224 10^3/uL (150-450); RED BLOOD COUNT 3.73 10^6/uL (3.72-5.28); RED CELL DISTRIBUTION WIDTH 17.7 % (11.5-14.0); SEGMENTED NEUTROPHILS % (AUTO) 65.2 % (42-78); TOTAL CELLS COUNTED % (AUTO) 100 %; WHITE BLOOD COUNT 10.9 10^3/uL (4.0-10.5)
[2019-10-29 18:19] LABS: UR PRO/CREAT RATIO RESULT 1.5 mg/mg (0.0-0.2); URINE CREATININE 82.7 mg/dL (16-327); URINE PROTEIN 123.9 mg/dL (<12)
[2019-10-29 18:27] LABS: ALKALINE PHOSPHATASE 90 U/L (38-126); ANION GAP 9 (5-19); ASPARTATE AMINO TRANSFERASE 20 U/L (14-36); BILIRUBIN,TOTAL 0.3 mg/dL (0.2-1.3); BLOOD UREA NITROGEN 16 mg/dL (7-20); CALCIUM 8.4 mg/dL (8.4-10.2); CARBON DIOXIDE 18 mmol/L (22-30); CHLORIDE 105 mmol/L (98-107); GLUCOSE 102 mg/dL (75-110); POTASSIUM 3.9 mmol/L (3.6-5.0); TOTAL PROTEIN 5.8 g/dL (6.3-8.2); URIC ACID 4.1 mg/dL (2.5-6.2)
[2019-10-29 18:29] LABS: URINE AMPHETAMINES SCREEN NEGATIVE; URINE BARBITURATES SCREEN NEGATIVE; URINE COCAINE SCREEN NEGATIVE; URINE MARIJUANA (THC) SCREEN NEGATIVE; URINE METHADONE SCREEN NEGATIVE; URINE PHENCYCLIDINE SCREEN NEGATIVE
[2019-10-29 18:35] LABS: URINE BENZODIAZEPINES SCREEN UNCONFIRMED POSITIVE
--- NOTE | 2019-10-29 18:55 | RADIOLOGY REPORT (SQ) ---
EXAM DESCRIPTION: U/S PROFILE W/O STRESS IMAGES COMPLETED DATE/TIME: 10/29/2019 6:46 pm REASON FOR STUDY: BPP - NON REACTIVE NST COMPARISON: None. TECHNIQUE: Limited melgar-scale realtime and static images of the fetus to measure specified parameter s. LIMITATIONS: None. FINDINGS: HEART RATE: 133 beats per minute. TALIA: 10.8 cm. LVP - 8.0 cm x 7.4 cm. BREATHING MOVEMENT: 2 points. MOVEMENT: 2 points. POSTURE AND TONE: 2 points. QUALITATIVE TALIA: 2 points. OTHER: Cephalic presentation. IMPRESSION: BIOPHYSICAL PROFILE: 01/22. Trimester of : Third - 28 weeks to delivery COMMENT: BREATHING MOVEMENTS: 2 POINTS: PRESENT 0 POINTS: ABSENT MOTION: 2 POINTS: PRESENT 0 POINTS: ABSENT TONE: 2 POINTS: PRESENT 0 POINTS: ABSENT AMNIOTIC FLUID VOLUME: 2 POINTS: LARGEST POCKET GREATER THAN 2 CM DEPTH. 0 POINTS: NO POCKET OF 2 CM. TECHNICAL DOCUMENTATION: JOB ID: [id number] 2010 [employer]- All Rights Reserved Reading location - IP/workstation name: [email or web address]
[2019-10-29] MEDS ORDERED: RINGERS SOLUTION,LACTATED 1,000 ML IV ONE (19:06)
[2019-10-29] MEDS ORDERED: RINGERS SOLUTION,LACTATED 1,000 ML IV PRN (19:32)
[2019-10-29] MEDS ORDERED: RINGERS SOLUTION,LACTATED 300 ML IV ONE (19:32)
[2019-10-29] MEDS ORDERED: ACETAMINOPHEN 325 MG TABLET PO PRN (19:32)
[2019-10-29] MEDS ORDERED: MAG HYDROX/AL HYDROX/SIMETH SUSP 30 ML UDCUP PO PRN (19:32)
[2019-10-29] MEDS ORDERED: DINOPROSTONE 10 MG VAGINAL INSERT.SR PV ONE (19:32)
[2019-10-29] MEDS ORDERED: OXYTOCIN 10 UNIT/ML VIAL ONE (19:45)
[2019-10-29] MEDS ORDERED: OXYTOCIN/0.9 % SODIUM CHLORIDE 30 UNIT/500 ML RTUINJ ONE (19:45)
[2019-10-29] MEDS ORDERED: MISOPROSTOL 0.2 MG TABLET ONE (19:45)
[2019-10-29] MEDS ORDERED: LIDOCAINE 1% INJ-PF (10 MG/ML) 30 ML SDV ONE (19:45)
[2019-10-29] MEDS ORDERED: ATENOLOL 50 MG TABLET PO ONE (20:16)
[2019-10-29] MEDS ORDERED: ZOLPIDEM TARTRATE 5 MG TABLET ONE (20:56)
[2019-10-29] MEDS ORDERED: DINOPROSTONE 10 MG VAGINAL INSERT.SR ONE (20:56)
[2019-10-29] MEDS ORDERED: HYDROMORPHONE HCL INJ/PF 2 MG/ML AMPULE ONE ×2 (20:56→23:54)
[2019-10-29] MEDS ORDERED: NIFEDIPINE 10 MG CAPSULE PO SCH (22:00)
[2019-10-29] MEDS ORDERED: ATENOLOL 50 MG TABLET PO SCH (22:00)
[2019-10-29] MEDS: ZOLPIDEM TARTRATE 5 MG TABLET PO PRN (22:16)
[2019-10-30] MEDS ORDERED: HYDROMORPHONE HCL INJ/PF 2 MG/ML AMPULE IV ONE ×2 (00:30→15:32)
[2019-10-30] MEDS ORDERED: ONDANSETRON HCL INJ/PF 4 MG/2 ML SDV ONE ×4 (01:20→23:16)
[2019-10-30] MEDS ORDERED: ONDANSETRON HCL INJ/PF 4 MG/2 ML SDV IV ONE (02:00)
[2019-10-30] MEDS ORDERED: ACETAMINOPHEN 325 MG TABLET ONE (03:16)
[2019-10-30] MEDS ORDERED: ACETAMINOPHEN WITH CODEINE #3 TABLET ONE (08:21)
[2019-10-30] MEDS ORDERED: ACETAMINOPHEN WITH CODEINE #3 TABLET PO ONE (08:21)
[2019-10-30] MEDS ORDERED: NIFEDIPINE 30 MG TAB.ER.24 PO ONE (08:26)
[2019-10-30] MEDS ORDERED: MAGNESIUM SULFATE 4 GM/100 ML RTUPB IV ONE ×2 (08:45→08:58)
[2019-10-30] MEDS ORDERED: NALBUPHINE HCL INJ 10 MG/1 ML AMPULE INJ ONE (08:57)
[2019-10-30] MEDS ORDERED: MAGNESIUM SULFATE 20 GM/500 ML RTUINJ IV ONE (08:58)
--- NOTE | 2019-10-30 09:09 | Admission Physical ---
Datetime Report Generated by CPN: 10/30/2019 09:08 CURRENT ADMISSION Chief Complaint: Sent from OB Office for Evaluation and Treatment - Please Specify Indication for Induction: PreEclampsia Indication for Induction- Other: Sent from office for severe range BPs Prot/Creat ratio 1.6--this week Severe Pre-Eclampsia Admit Impression : , Intrauterine ; No Active Labor Admit Plan: Initiate Labor Induction Protocol Admit Plan- Other: SVT Anxiety Hx Gastric Bypass GBS neg ALLERGIES Medication Allergies: No Medication Allergies: No Known Allergies (10/29/2019) Latex: No Latex Allergies Food Allergies: none Environmental Allergies: none OBSTETRICAL HISTORY EDC: 11/21/2019 00:00 : 1 Para: 0 Term: 0 : 0 SAB: 0 IAB: 0 Ectopic: 0 Livin Cesareans: 0 VBACs: 0 Multiple Births: 0 Gestational Diabetes: No Rh Sensitization: No Incompetent Cervix: No EMIL: No Infertility: No ART Treatment: No Uterine Anomaly: No IUGR: No Hx Previous C/S: No Macrosomia: No Hx Loss/Stillborn: No PIH: No Hx : No Placenta Previa/Abruption: No Depression/PP Depression: No PTL/PROM: No Post Hemorrhage: No Current Procedures: Ultrasound Obstetrical History Comments: G1- current SEE RECORDS Alcohol: No Marijuana : No Cocaine: No Other Illicit Drugs: No Cigarettes: Former Smoker. 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 Surgery: No Heart Disease: No Hosp/Surgery: Yes Autoimmune Disorder: No Anesthetic Complications: No Kidney Disease: No Abnormal Pap Smear: No Neuro/Epilepsy: No Psychiatric Disorders: Yes Other Medical Diseases: No Hepatitis/Liver Disease: No Significant Family History: No Varicosities/Phlebitis: No Trauma/Violence : No Thyroid Dysfunction: No Medical History Comments: ptsd, anxiety, adhd, depression, gastric bypass INFECTIOUS HISTORY Gonorrhea: No Genital Herpes: No Chlamydia: No Tuberculosis: No Syphilis: No Hepatitis: No HIV/AIDS Exposure: No Rash or Viral Illness: No HPV: No PHYSICAL EXAM General: Normal HEENT: Deferred Neurologic: Normal Thyroid: Deferred Heart: Normal Lungs: Normal Breast: Deferred Back: Deferred Abdomen: Normal Genitourinary Exam: Deferred Extremities: Normal DTRs: Normal Pelvic Type: Not Done Physical Exam Comments: Cervidil placed last night removed this am 1 cm per nursing Vital Signs: Reviewed MEMBRANES Membranes: Intact FETUS A EGA: 36.6 Monitoring: External US; External Blue Tooth Device FHR- Baseline: 130 Variability: Moderate 6-25bpm Accelerations: 15X15 Decelerations: None FHR Category: Category I Admit Comment: Arrived last night, cervidil placed c/o headache this am and throughout night and blurred vision PLANS FOR LABOR AND DELIVERY Labor and Delivery: None Pain Management: Epidural Feeding Preference: Formula Benefit of Breast Feed Discussed: Yes Circumcision: N/A INFORMED CONSENT Assignment: Lorin Miller MD Signature: with User ID: [email or web address] : with User ID: [email or web address]
[2019-10-30] MEDS ORDERED: NALBUPHINE HCL INJ 10 MG/1 ML AMPULE ONE (09:41)
[2019-10-30] MEDS ORDERED: SERTRALINE HCL 50 MG TABLET ONE ×2 (09:51→09:52)
[2019-10-30] MEDS: SERTRALINE HCL 50 MG TABLET PO SCH (09:53)
[2019-10-30] MEDS ORDERED: ATENOLOL 50 MG TABLET PO SCH (10:00)
[2019-10-30] MEDS: MAGNESIUM SULFATE 20 GM/500 ML RTUINJ IV PRN (10:05)
[2019-10-30] MEDS ORDERED: BETAMET ACET/BETAMET NA INJ 6 MG/1 ML ONE (11:06)
[2019-10-30] MEDS ORDERED: BETAMET ACET/BETAMET NA INJ 6 MG/1 ML IM ONE (11:25)
[2019-10-30] MEDS ORDERED: EPHEDRINE SULFATE INJ 50 MG/1 ML AMPULE ONE ×2 (11:49→23:16)
[2019-10-30] MEDS ORDERED: BUPIVACAINE HCL 0.25 % INJ/PF (2.5 MG/1 ML) 30 ML VIAL ONE (11:49)
[2019-10-30] MEDS ORDERED: FENTANYL/BUPIVACAINE/NS/PF 300 MCG/150 ML RTUINJ EPI ONE ×2 (11:49→22:34)
[2019-10-30] MEDS: ONDANSETRON HCL INJ/PF 4 MG/2 ML SDV IV PRN ×2 (12:40→19:23)
[2019-10-30 12:56] LABS: HEMATOCRIT 32.3 % (36.0-47.0); MEAN CORPUSCULAR HEMOGLOBIN 29.1 pg (27.0-33.4); MEAN CORPUSCULAR HGB CONC 34.1 g/dL (32.0-36.0); MEAN CORPUSCULAR VOLUME 86 fl (80-97); PLATELET COUNT 233 10^3/uL (150-450); RED BLOOD COUNT 3.78 10^6/uL (3.72-5.28); RED CELL DISTRIBUTION WIDTH 17.6 % (11.5-14.0); WHITE BLOOD COUNT 10.2 10^3/uL (4.0-10.5)
[2019-10-30 13:00] LABS: INTERNATIONAL RATION (INR) 0.99; PROTHROMBIN TIME 13.1 SEC (11.4-15.4)
[2019-10-30 13:01] LABS: PARTIAL THROMBOPLASTIN TIME 26.5 SEC (23.5-35.8)
[2019-10-30] MEDS: NIFEDIPINE 30 MG TAB.ER.24 PO SCH (13:10)
[2019-10-30 13:19] LABS: ALBUMIN 2.9 g/dL (3.5-5.0); ALKALINE PHOSPHATASE 98 U/L (38-126); ASPARTATE AMINO TRANSFERASE 25 U/L (14-36); BILIRUBIN,TOTAL 0.4 mg/dL (0.2-1.3); BLOOD UREA NITROGEN 15 mg/dL (7-20); CALCIUM 8.4 mg/dL (8.4-10.2); CHLORIDE 103 mmol/L (98-107); GLUCOSE 79 mg/dL (75-110); POTASSIUM 4.2 mmol/L (3.6-5.0); TOTAL PROTEIN 5.8 g/dL (6.3-8.2); URIC ACID 4.1 mg/dL (2.5-6.2)
[2019-10-30 13:25] LABS: ANION GAP 4 (5-19); CARBON DIOXIDE 24 mmol/L (22-30)
[2019-10-30] MEDS ORDERED: HYDRALAZINE HCL INJ/PF 20 MG/1 ML SDV ONE ×2 (14:54→19:32)
[2019-10-30] MEDS ORDERED: HYDRALAZINE HCL INJ/PF 20 MG/1 ML SDV IV ONE ×3 (15:30→19:30)
[2019-10-30] MEDS ORDERED: OXYTOCIN/0.9 % SODIUM CHLORIDE 30 UNIT/500 ML RTUINJ IV PRN ×2 (15:32→23:02)
[2019-10-30] MEDS ORDERED: HYDROMORPHONE HCL INJ/PF 2 MG/ML AMPULE ONE (15:34)
[2019-10-30] MEDS ORDERED: CITRIC ACID/SODIUM CITRATE ORAL SOLN 15 ML UDCUP ONE (19:47)
[2019-10-30] MEDS ORDERED: CEFAZOLIN INJ 1 GM VIAL ONE ×2 (19:47→23:01)
[2019-10-30] MEDS ORDERED: BUTALB/ACETAMINOPHEN/CAFFEINE 1 TAB EACH ONE (20:32)
[2019-10-30] MEDS ORDERED: OXYTOCIN/0.9 % SODIUM CHLORIDE 30 UNIT/500 ML RTUINJ ONE (20:32)
[2019-10-30] MEDS ORDERED: BUTALB/ACETAMINOPHEN/CAFFEINE 1 TAB EACH PO ONE (21:30)
[2019-10-30] MEDS ORDERED: CEFAZOLIN SODIUM 3 GM in DEXTROSE 5%-WATER 50 ML IV PRN (23:01)
[2019-10-30] MEDS ORDERED: RINGERS SOLUTION,LACTATED 1,000 ML IV PRN (23:02)
[2019-10-30] MEDS ORDERED: DIPH/PERTUSS(ACELL)/TETANUS VAC/PF 0.5 ML SYR (>=10YO) IM PRN (23:02)
[2019-10-30] MEDS ORDERED: ACETAMINOPHEN 1,000 MG/100 ML RTUPB IV PRN (23:02)
[2019-10-30] MEDS ORDERED: MEASLES,MUMPS&RUBELLA VACC/PF 0.5 ML VIAL SUBCUT PRN (23:02)
[2019-10-30] MEDS ORDERED: OXYCODONE-ACETAMINOPHEN 5-325 MG TABLET PO PRN (23:02)
[2019-10-30] MEDS ORDERED: ACETAMINOPHEN 325 MG TABLET PO PRN (23:02)
[2019-10-30] MEDS ORDERED: FENTANYL CITRATE INJ/PF 100 MCG/2 ML AMPUL ONE ×2 (23:15→23:17)
[2019-10-30] MEDS ORDERED: KETOROLAC TROMETHAMINE INJ/PF 30 MG/1 ML SDV ONE (23:15)
[2019-10-30] MEDS ORDERED: OXYTOCIN 10 UNIT/ML VIAL ONE ×2 (23:15→23:17)
[2019-10-30] MEDS ORDERED: ACETAMINOPHEN 1,000 MG/100 ML RTUPB IV ONE (23:16)
[2019-10-30] MEDS ORDERED: MIDAZOLAM 2 MG/2 ML INJ ONE ×2 (23:16→23:17)
[2019-10-30] MEDS ORDERED: LIDOCAINE 2% INJ-PF (20 MG/ML) 10 ML AMPUL ONE (23:17)
[2019-10-30] MEDS ORDERED: KETAMINE HCL INJ 500 MG/10 ML VIAL ONE (23:17)
--- NOTE | 2019-10-30 23:17 | Brief Operative Note ---
BRIEF OPERATIVE REPORT DATE OF SURGERY: 10/30/19 TIME OF SURGERY: 23:35 PREOPERATIVE DIAGNOSIS: PUND at 36+6ega, Severe PreE, Non reassuring FHTs, POSTOPERATIVE DIAGNOSIS: MARCO - partial abruption SURGEON: KIKA RIZVI FINDINGS: VFI delivered at 2349, Agars 09/21. normal bilateral tubes/ovaries. Partial abruption and uterine atony. Intrauterine hemabate, 40units pitocin IV and 1000mcg cytotec CO. IVF 1200ml, UOP 200ml, QBL pending. COMPLICATIONS: uterine atony ESTIMATED BLOOD LOSS: 900 TISSUE REMOVED OR ALTERED: placenta and cord TECHNICAL PROCEDURE: Primary section
[2019-10-30] MEDS ORDERED: MISOPROSTOL 0.2 MG TABLET ONE (23:52)
[2019-10-30] MEDS ORDERED: CARBOPROST TROMETHAMINE INJ 250 MCG/1 ML AMPULE ONE (23:54)
[2019-10-31] MEDS ORDERED: MORPHINE SULFATE 10 MG/ML INJ ONE ×3 (00:18→01:47)
[2019-10-31] MEDS ORDERED: MISOPROSTOL 0.2 MG TABLET ONE (00:50)
[2019-10-31] MEDS ORDERED: OXYCODONE-ACETAMINOPHEN 5-325 MG TABLET PO PRN ×2 (01:03)
[2019-10-31] MEDS ORDERED: DIPHENHYDRAMINE HCL 50 MG/ML VIAL IV PRN (01:03)
[2019-10-31] MEDS ORDERED: FENTANYL CITRATE INJ/PF 100 MCG/2 ML AMPUL IV PRN ×2 (01:03)
[2019-10-31] MEDS ORDERED: PROMETHAZINE HCL INJ 25 MG/1 ML VIAL IV PRN ×2 (01:03)
[2019-10-31] MEDS ORDERED: MORPHINE SULFATE 10 MG/ML INJ IV PRN (01:03)
[2019-10-31] MEDS ORDERED: MEPERIDINE HCL/PF INJ 25 MG/1 ML DISP.SYRIN IV PRN (01:03)
[2019-10-31] MEDS ORDERED: MAGNESIUM SULFATE 20 GM/500 ML RTUINJ IV ONE (01:04)
[2019-10-31] MEDS ORDERED: MISOPROSTOL 0.2 MG TABLET PR ONE (01:20)
[2019-10-31] MEDS: MAGNESIUM SULFATE 20 GM/500 ML RTUINJ IV PRN (01:26)
[2019-10-31] MEDS ORDERED: MEPERIDINE HCL/PF INJ 25 MG/1 ML DISP.SYRIN ONE (02:33)
--- NOTE | 2019-10-31 04:30 | Delivery Summary ---
Del Sum A-C Datetime Report Generated by CPN: 10/31/2019 04:30 DELIVERY PERSONNEL DELIVERY PERSONNEL: [id number] Delivery Doctor:: Lorin Miller MD Anesthesiologist:: Paolo Plaza MD GREENS LABORER:: Shyla Thomas RNstaffing operations manager Nurse:: Kendra Woods RNstaffing operations manager Nurse:: Roxie Lynch RN Skin Diving Teacher:: Kendra Woods RN Neonatal Nurse Practitioner:: ROXANN Ayala Nursery Nurse:: Ashley Dean RN Business Law Professor/CORRESPONDENCE ANALYST: Chen Eddy CST Business Law Professor/CORRESPONDENCE ANALYST: Daphney Candido, BRUSH HEAD MAKER MATERNAL INFORMATION Delivery Anesthesia: Epidural Medications After Delivery: Pitocin Bolus-Please Comment; Pitocin 30 Units in 500ml NS/D5W; Cytotec 1000mcg Per Rectum/Vagina; Other-Please Comment Meds After Delivery Comment: Hemabate 250 mcg IM intrauterine Delivery QBL: 1700 Delivery QBL Comment: delivery ieh=[id number] recovery qbl=35 total: 1735ml Maternal Complications: Abruptio Placenta; Hemorrhage; Other Other Maternal Complications: Preeclampsia on Magnesium Sulfate Complication Details: partial abruption of placenta noted at delivery LABOR SUMMARY EDC: 11/21/2019 00:00 No. Babies in Womb: 1 Attempted: No Labor Anesthesia: Epidural LABOR INFORMATION Reason for Induction: Pre-Eclampsia Onset of Labor: 10/30/2019 16:15 Cervical Ripening Agents: Cervidil; [place] Balloon Oxytocin: Induction Group B Beta Strep: negative Antibiotics # of Doses: n/a Steroids Given: Full Course; > 24 Hours before Delivery Reason Steroids Not Administered: Indication; Imminent Delivery MEMBRANES Membranes Rupture Method: Artificial Rupture of Membranes: 10/30/2019 22:39 Length of Rupture (hr): 1.17 Amniotic Fluid Color: Clear Amniotic Fluid Amount: Large Amniotic Fluid Odor: Normal STAGES OF LABOR Stage 3 hr: 24 Stage 3 min: 1 Total Time in Labor hr: 31 Total Time in Labor min: 35 VAGINAL DELIVERY Episiotomy: None Laceration #1: None Laceration Extension #1: N/A Sharps Count Correct: N/A CSECTION DELIVERY Primary Indication: Nonreassuring Status CSection Urgency: Non-Scheduled CSection Incidence: Primary Labor: Labor Elective: Nonelective CSection Incision: Lower Uterine Transverse BABY A INFORMATION Delivery Date/Time: 10/30/2019 23:49 Method of Delivery: Vaginal Nurse Controlled Delivery: No Born in Route : No : N/A Forceps: N/A Vacuum Extraction: N/A Shoulder Dystocia : No PRESENTATION/POSITION BABY A Presentation: Cephalic Cephalic Presentation: Vertex Vertex Position: Left Occipital Anterior Breech Presentation: N/A PLACENTA INFORMATION BABY A Placenta Delivery Time : 10/31/2019 23:50 Placenta Method of Delivery: Manual Removal Placenta Status: Delivered SCORES BABY A Heart Rate 1 min: >100 bpm Resp Effort 1 min: Absent Reflex Irritability 1 min: Grimace Muscle Tone 1 min: Flaccid Color 1 min: Blue/Pale Resuscitation Effort 1 min: PPV/NCPAP SCORE 1 MIN: 3 Heart Rate 5 min: >100 bpm Resp Effort 5 min: Good Cry Reflex Irritability 5 min: Cough or Sneeze or Pulls Away Muscle Tone 5 min: Some Flexion of Extremities Color 5 min: Blue/Pale SCORE 5 MIN: 7 INFANT INFORMATION BABY A Gestational Age at Delivery: 36.6 Gestational Status: Late - 34- 36.6 Weeks Outcome : Liveborn Infant Condition : Stable Sex: Male IDENTIFICATION BABY A Verification Date/Time: 10/31/2019 01:02 ID Band Number: [id number] Mother's Name Verified: Yes RN Verifying Infant: KArgelia Manjarrezco, RN Additional Verifying Personnel: Julian Rocha, RN WEIGHT/LENGTH BABY A Birthweight (gm): 2450 Weight (lb): 5 Infant Weight (oz): 6 Length (in): 17.75 Infant Length (cm): 45.09 CORD INFORMATION BABY A No. Cord Vessels: 3 Nuchal Cord : N/A Cord Blood Taken: Yes-For Eval (Mom's Blood Type - or O+) Suction: Mouth; Nose ASSESSMENT BABY A Infant Complications: Multiple Late Decels; Multiple Variable Decels Physical Findings at Delivery: Within Normal Limits Physical Findings- Other: see initial nursery assessment Skin to Skin: No Care By: LArgelia Fub, RN, DIGITAL MEDIA REPRESENTATIVE [place] Transferred To: NICU BABY B INFORMATION : N/A SIGNATURES : I was personally available for consultation and serving as supervising physician for the MLP.
[2019-10-31] MEDS ORDERED: KETOROLAC TROMETHAMINE INJ/PF 30 MG/1 ML SDV IV SCH (06:00)
[2019-10-31] MEDS ORDERED: HYDROMORPHONE HCL INJ/PF 2 MG/ML AMPULE ONE ×2 (07:27→12:44)
[2019-10-31] MEDS: HYDROMORPHONE HCL INJ/PF 2 MG/ML AMPULE IV PRN ×2 (07:29→12:47)
[2019-10-31 07:58] LABS: HEMATOCRIT 26.3 % (36.0-47.0); MEAN CORPUSCULAR HEMOGLOBIN 29.1 pg (27.0-33.4); MEAN CORPUSCULAR HGB CONC 34.1 g/dL (32.0-36.0); MEAN CORPUSCULAR VOLUME 85 fl (80-97); PLATELET COUNT 235 10^3/uL (150-450); RED BLOOD COUNT 3.09 10^6/uL (3.72-5.28); WHITE BLOOD COUNT 16.7 10^3/uL (4.0-10.5)
[2019-10-31] MEDS ORDERED: SERTRALINE HCL 50 MG TABLET ONE (09:15)
[2019-10-31] MEDS ORDERED: FUROSEMIDE INJ/PF 40 MG/4 ML SDV ONE (09:15)
[2019-10-31] MEDS ORDERED: DOCUSATE SODIUM 100 MG CAPSULE ONE (09:15)
[2019-10-31] MEDS ORDERED: PRENATAL VITAMIN W DHA CAPSULE PO ONE (09:15)
[2019-10-31] MEDS: PRENATAL VITAMIN W DHA CAPSULE PO SCH (09:29)
[2019-10-31] MEDS: SERTRALINE HCL 50 MG TABLET PO SCH (09:30)
[2019-10-31] MEDS: NIFEDIPINE 30 MG TAB.ER.24 PO SCH (09:30)
[2019-10-31] MEDS: DOCUSATE SODIUM 100 MG CAPSULE PO SCH ×2 (09:30→17:41)
[2019-10-31] MEDS ORDERED: PROMETHAZINE HCL INJ 25 MG/1 ML VIAL ONE (09:36)
[2019-10-31] MEDS: PROMETHAZINE HCL INJ 25 MG/1 ML VIAL IV PRN (09:38)
[2019-10-31] MEDS: FUROSEMIDE INJ/PF 20 MG/2 ML SDV IV SCH ×2 (09:47→12:38)
[2019-10-31] MEDS: ATENOLOL 50 MG TABLET PO SCH (12:47)
[2019-10-31] MEDS: OXYCODONE-ACETAMINOPHEN 5-325 MG TABLET PO PRN ×2 (17:41→21:46)
[2019-10-31] MEDS: ONDANSETRON HCL INJ/PF 4 MG/2 ML SDV IV PRN (19:24)
[2019-10-31] MEDS: ZOLPIDEM TARTRATE 5 MG TABLET PO PRN (22:57)
[2019-11-01] MEDS: HYDROMORPHONE HCL INJ/PF 2 MG/ML AMPULE IV PRN ×2 (01:25→08:27)
[2019-11-01] MEDS: ONDANSETRON HCL INJ/PF 4 MG/2 ML SDV IV PRN ×3 (01:33→17:22)
[2019-11-01] MEDS: OXYCODONE-ACETAMINOPHEN 5-325 MG TABLET PO PRN ×4 (04:53→21:33)
[2019-11-01] MEDS: SIMETHICONE 80 MG TAB.CHEW PO PRN ×2 (04:57→09:31)
[2019-11-01] MEDS ORDERED: NIFEDIPINE 30 MG TAB.ER.24 PO SCH (06:00)
[2019-11-01] MEDS ORDERED: HYDRALAZINE HCL INJ/PF 20 MG/1 ML SDV ONE ×3 (07:31→11:19)
[2019-11-01] MEDS ORDERED: HYDRALAZINE HCL INJ/PF 20 MG/1 ML SDV IV ONE ×3 (07:45→11:48)
--- NOTE | 2019-11-01 09:22 | PDOC PROGRESS REPORT ---
Subjective-OB Progress Note for:: 10/31/19 Subjective: Feeling ok. Currently on magnesium. Plan to wean off later today. Physical Exam (OB) Vital Signs: Temp Pulse Resp BP Pulse Ox 97.8 F 122 H 18 186/81 H 97 11/01/19 07:17 11/01/19 09:07 11/01/19 07:17 11/01/19 09:07 11/01/19 07:17 Intake & Output 10/31/19 11/01/19 11/02/19 06:59 06:59 06:59 Intake Total 384 1450 Balance 384 1450 - General General Appearance: Appears well, Sedated - PIH/Pre-Eclampsia DTR's: 1 + Clonus: Negative Headache: Absent Epigastric Pain: No Visual Changes: No - Dressing Removed: No Incision: Dressing Closure Type: Surgical Glue - Lochia Lochia Amount: Scant < 10 ml Lochia Color: Rubra/Red - Abdomen Description: Soft, Round Hernia Present: No Fundal Description: Firm, Midline Fundal Height: u/u - u/2 Objective-Diagnostic Laboratory: 10/31/19 07:14 10/30/19 12:39 Assessment and Plan(PN) Plan:: Wean off the mag later. Move to the flow and continue care. - Time Spent with Patient Time with patient: 15-25 minutes Smoking Education Provided: Over 3 minutes Medications reviewed and adjusted accordingly: Yes - Disposition Anticipated Discharge: Home Within: within 72 hours
--- NOTE | 2019-11-01 09:25 | PDOC PROGRESS REPORT ---
Subjective-OB Progress Note for:: 11/01/19 Subjective: Sore today. Problems with bp. Physical Exam (OB) Vital Signs: Temp Pulse Resp BP Pulse Ox 97.8 F 122 H 18 186/81 H 97 11/01/19 07:17 11/01/19 09:07 11/01/19 07:17 11/01/19 09:07 11/01/19 07:17 Intake & Output 10/31/19 11/01/19 11/02/19 06:59 06:59 06:59 Intake Total 384 1450 Balance 384 1450 - General General Appearance: Appears well - PIH/Pre-Eclampsia DTR's: 1 + Clonus: Negative Headache: Absent Epigastric Pain: No Visual Changes: No - Dressing Removed: No Incision: Dressing Closure Type: Surgical Glue - Lochia Lochia Amount: Scant < 10 ml Lochia Color: Rubra/Red - Abdomen Description: Soft, Round Hernia Present: No Fundal Description: Firm, Midline Fundal Height: u/u - u/2 - Abdominal Inspection: Other - Dressing is dry Distension: No distension Tenderness: Tender - Extremities Upper extremity: Normal inspection, Edema Objective-Diagnostic Laboratory: 10/31/19 07:14 10/30/19 12:39 Assessment and Plan(PN) - Assessment and Plan (1) Placenta abruption, delivered, current hospitalization Is this a current diagnosis for this admission?: Yes (2) Status post primary low transverse section Is this a current diagnosis for this admission?: Yes Plan:: Continue to work on pain control, ambulation and BP control - Time Spent with Patient Time with patient: 15-25 minutes Smoking Education Provided: Over 3 minutes Medications reviewed and adjusted accordingly: Yes - Disposition Anticipated Discharge: Home Within: within 48 hours
[2019-11-01] MEDS: PRENATAL VITAMIN W DHA CAPSULE PO SCH (09:30)
[2019-11-01] MEDS: SERTRALINE HCL 50 MG TABLET PO SCH (09:30)
[2019-11-01] MEDS: FUROSEMIDE INJ/PF 20 MG/2 ML SDV IV SCH (09:31)
[2019-11-01] MEDS: DOCUSATE SODIUM 100 MG CAPSULE PO SCH ×2 (09:31→17:22)
[2019-11-01] MEDS: ATENOLOL 50 MG TABLET PO SCH (10:07)
[2019-11-01] MEDS: PROMETHAZINE HCL INJ 25 MG/1 ML VIAL IV PRN (11:27)
[2019-11-01] MEDS: NIFEDIPINE 30 MG TAB.ER.24 PO SCH (17:22)
[2019-11-01] MEDS: ZOLPIDEM TARTRATE 5 MG TABLET PO PRN (22:43)
[2019-11-01] MEDS ORDERED: IBUPROFEN 800 MG TABLET PO SCH (23:02)
[2019-11-02] MEDS: NIFEDIPINE 30 MG TAB.ER.24 PO SCH (05:01)
[2019-11-02] MEDS: OXYCODONE-ACETAMINOPHEN 5-325 MG TABLET PO PRN (05:11)
[2019-11-02] MEDS: ONDANSETRON HCL INJ/PF 4 MG/2 ML SDV IV PRN (05:13)
[2019-11-02] MEDS: SERTRALINE HCL 50 MG TABLET PO SCH (09:19)
[2019-11-02] MEDS: DOCUSATE SODIUM 100 MG CAPSULE PO SCH (09:19)
[2019-11-02] MEDS: ATENOLOL 50 MG TABLET PO SCH (09:19)
[2019-11-02] MEDS: FUROSEMIDE INJ/PF 20 MG/2 ML SDV IV SCH (09:20)
[2019-11-02] MEDS: PRENATAL VITAMIN W DHA CAPSULE PO SCH (09:20)
[2019-11-02 10:13] VITALS: BP 171/114
--- NOTE | 2019-11-02 10:41 | PDOC DISCHARGE SUMMARY ---
Impression - Admit/DC Date/PCP Admission Date/Primary Care Provider: 10/29/19 19:25 MONICA ZENDEJAS MD Discharge Date: 11/02/19 - Discharge Diagnosis (2) Status post primary low transverse section Is this a current diagnosis for this admission?: Yes (3) hemorrhage Is this a current diagnosis for this admission?: Yes (4) Non-reassuring electronic monitoring tracing Is this a current diagnosis for this admission?: Yes (5) Placenta abruption, delivered, current hospitalization Is this a current diagnosis for this admission?: Yes (6) Severe pre-eclampsia Is this a current diagnosis for this admission?: Yes - Additional Information Discharge Diet: Regular Discharge Activity: Balance Activity w/Rest, No Lifting Over 10 Pounds, No Lifting/Push/Pulling, No tub bath Referrals: MONICA ZENDEJAS MD [Primary Care Provider] - Prescriptions: Dextroamphetamine/Amphetamine [Adderall Xr 30 mg Capsule] 60 mg PO DAILY #60 cap.er.24h Ibuprofen [Motrin 800 mg Tablet] 800 mg PO Q8H #90 tablet Oxycodone HCl/Acetaminophen [Percocet 5-325 mg Tablet] 1 tab PO Q4HP PRN #30 tablet PRN Reason: Nifedipine [Procardia XL 30 mg Tablet] 30 mg PO Q12A #60 tab.er.24 Atenolol [Tenormin 50 mg Tablet] 1 tab PO DAILY #30 Atenolol [Tenormin 50 mg Tablet] 50 mg PO DAILY #30 tablet Home Medications: Atenolol [Tenormin 50 mg Tablet] 1 tab PO DAILY #30 11/02/19 Atenolol [Tenormin 50 mg Tablet] 50 mg PO DAILY #30 tablet 11/02/19 Dextroamphetamine/Amphetamine [Adderall Xr 30 mg Capsule] 60 mg PO DAILY #60 cap.er.24h 11/02/19 Docusate Sodium [Colace 100 mg Capsule] 100 mg PO BID capsule 11/02/19 Ibuprofen [Motrin 800 mg Tablet] 800 mg PO Q8H #90 tablet 11/02/19 Nifedipine [Procardia XL 30 mg Tablet] 30 mg PO Q12A #60 tab.er.24 11/02/19 Oxycodone HCl/Acetaminophen [Percocet 5-325 mg Tablet] 1 tab PO Q4HP PRN #30 tablet 11/02/19 Vit/Dha [ Multi + Dha Capsule] 1 cap PO DAILY capsule 11/02/19 Sertraline HCl [Zoloft 50 mg Tablet] 100 mg PO DAILY tablet 11/02/19 Results Laboratory Results: WBC 16.7 10^3/uL (4.0-10.5) H 10/31/19 07:14 RBC 3.09 10^6/uL (3.72-5.28) L 10/31/19 07:14 Hgb 9.0 g/dL (12.0-15.5) L 10/31/19 07:14 Hct 26.3 % (36.0-47.0) L 10/31/19 07:14 MCV 85 fl (80-97) 10/31/19 07:14 MCH 29.1 pg (27.0-33.4) 10/31/19 07:14 MCHC 34.1 g/dL (32.0-36.0) 10/31/19 07:14 RDW 18.0 % (11.5-14.0) H 10/31/19 07:14 Plt Count 235 10^3/uL (150-450) 10/31/19 07:14 Lymph % (Auto) 28.0 % (13-45) 10/29/19 17:52 [place] % (Auto) 5.9 % (3-13) 10/29/19 17:52 Eos % (Auto) 0.7 % (0-6) 10/29/19 17:52 Baso % (Auto) 0.2 % (0-2) 10/29/19 17:52 Absolute Neuts (auto) 7.1 10^3/uL (1.7-8.2) 10/29/19 17:52 Absolute Lymphs (auto) 3.0 10^3/uL (0.5-4.7) 10/29/19 17:52 Absolute Monos (auto) 0.6 10^3/uL (0.1-1.4) 10/29/19 17:52 Absolute Eos (auto) 0.1 10^3/uL (0.0-0.6) 10/29/19 17:52 Absolute Basos (auto) 0.0 10^3/uL (0.0-0.2) 10/29/19 17:52 Seg Neutrophils % 65.2 % (42-78) 10/29/19 17:52 PT 13.1 SEC (11.4-15.4) 10/30/19 12:39 INR 0.99 10/30/19 12:39 APTT 26.5 SEC (23.5-35.8) 10/30/19 12:39 Sodium 131.1 mmol/L (137-145) L 10/30/19 12:39 Potassium 4.2 mmol/L (3.6-5.0) 10/30/19 12:39 Chloride 103 mmol/L (98-107) 10/30/19 12:39 Carbon Dioxide 24 mmol/L (22-30) 10/30/19 12:39 Anion Gap 4 (5-19) L 10/30/19 12:39 BUN 15 mg/dL (7-20) 10/30/19 12:39 Creatinine 0.59 mg/dL (0.52-1.25) 10/30/19 12:39 Est GFR ( Amer) > 60 (>60) 10/30/19 12:39 Est GFR (MDRD) Non-Af > 60 (>60) 10/30/19 12:39 Glucose 79 mg/dL (75-110) 10/30/19 12:39 Uric Acid 4.1 mg/dL (2.5-6.2) 10/30/19 12:39 Calcium 8.4 mg/dL (8.4-10.2) 10/30/19 12:39 Total Bilirubin 0.4 mg/dL (0.2-1.3) 10/30/19 12:39 Direct Bilirubin 0.0 mg/dL (0.0-0.4) 10/30/19 12:39 Neonat Total Bilirubin Not Reportable 10/30/19 12:39 Neonat Direct Bilirubin Not Reportable 10/30/19 12:39 Neonat Indirect Bili Not Reportable 10/30/19 12:39 AST 25 U/L (14-36) 10/30/19 12:39 ALT 16 U/L (<35) 10/30/19 12:39 Alkaline Phosphatase 98 U/L (38-126) 10/30/19 12:39 Lactate Dehydrogenase 168 U/L (120-246) 10/30/19 12:39 Total Protein 5.8 g/dL (6.3-8.2) L 10/30/19 12:39 Albumin 2.9 g/dL (3.5-5.0) L 10/30/19 12:39 Urine Color YELLOW 10/29/19 17:21 Urine Appearance CLOUDY 10/29/19 17:21 Urine pH 5.0 (5.0-9.0) 10/29/19 17:21 Ur Specific [place] 1.020 10/29/19 17:21 Urine Protein 100 mg/dL (NEGATIVE) H 10/29/19 17:21 Urine Glucose (UA) NEGATIVE mg/dL (NEGATIVE) 10/29/19 17:21 Urine Ketones NEGATIVE mg/dL (NEGATIVE) 10/29/19 17:21 Urine Blood LARGE (NEGATIVE) H 10/29/19 17:21 Urine Nitrite NEGATIVE (NEGATIVE) 10/29/19 17:21 Urine Bilirubin NEGATIVE (NEGATIVE) 10/29/19 17:21 Urine Urobilinogen NEGATIVE mg/dL (<2.0) 10/29/19 17:21 Ur Leukocyte Esterase TRACE (NEGATIVE) H 10/29/19 17:21 Urine Creatinine 82.7 mg/dL (16-327) 10/29/19 17:21 Protein/Creatinin Ratio 1.5 mg/mg (0.0-0.2) H 10/29/19 17:21 Urine Total Protein 123.9 mg/dL (<12) H 10/29/19 17:21 Urine Ascorbic Acid NEGATIVE (NEGATIVE) 10/29/19 17:21 Urine Opiates Screen NEGATIVE 10/29/19 17:21 Urine Methadone Screen NEGATIVE 10/29/19 17:21 Ur Barbiturates Screen NEGATIVE 10/29/19 17:21 Ur Phencyclidine Scrn NEGATIVE 10/29/19 17:21 Ur Amphetamines Screen NEGATIVE 10/29/19 17:21 U Benzodiazepines Scrn UNCONFIRMED POSITIVE 10/29/19 17:21 Urine Cocaine Screen NEGATIVE 10/29/19 17:21 U Marijuana (THC) Screen NEGATIVE 10/29/19 17:21 RPR NONREACTIVE (NONREACTIVE) 10/29/19 17:52 Blood Type O POSITIVE 10/29/19 17:52 Antibody Screen NEGATIVE 10/29/19 17:52 Impressions: Stress Test 10/29/19 00:00 IMPRESSION: BIOPHYSICAL PROFILE: 01/22. Trimester of : Third - 28 weeks to delivery Plan Health Concerns: up in 2-3 days at [facility] for BP check
[2019-11-02] MEDS ORDERED: DIPH/PERTUSS(ACELL)/TETANUS VAC/PF 0.5 ML SYR (>=10YO) IM PRN (11:30)
[2019-11-02] MEDS ORDERED: MEASLES,MUMPS&RUBELLA VACC/PF 0.5 ML VIAL SUBCUT PRN (11:30)
[2019-11-02] MEDS ORDERED: SIMETHICONE 80 MG TAB.CHEW PO PRN (11:30)
[2019-11-02] MEDS ORDERED: PROMETHAZINE HCL INJ 25 MG/1 ML VIAL IV PRN (11:30)
--- NOTE | 2019-11-12 17:40 | Operative Report ---
Operative Report DATE OF SURGERY: 10/30/19 PREOPERATIVE DIAGNOSIS: PUND at 36+6ega, Severe PreE, Non reassuring FHTs, POSTOPERATIVE DIAGNOSIS: MARCO - partial abruption OPERATION: Primary section SURGEON: KIKA RIZVI ANESTHESIA: Epidural TISSUE REMOVED OR ALTERED: placenta and cord COMPLICATIONS: uterine atony ESTIMATED BLOOD LOSS: 900 QUANTITATIVE BLOOD LOSS: 1,700 INTRAOPERATIVE FINDINGS: VFI delivered at 2349, Agars 4/7. normal bilateral tubes/ovaries. Partial abruption and uterine atony. Intrauterine hemabate, 40units pitocin IV and 1000mcg cytotec AR. IVF 1200ml, UOP 200ml, QBL 1700. PROCEDURE: Anesthesia provider: [Bola BONILLA, Kanchan Thomas CRNA] Urine output: [200ml] IV fluids: [1200ml] Indications: [29yo at 36+6ega with severe PreE admitted or IOL due to Severe PreE. She has had multiple doses of IV antihypertensives. She was i nitially changing and made cervical change to 6cm then pitocin had to be restarted due to no cervical change. The baby began to have repetitive decelerations with pitocin and she was consented for Primary section for non reassuring FHTs. The risks, benefits, and alternatives were reviewed and she desires to proceed with Primary section.] Procedure: The patient was taken to the operating room where epidural anesthesia was found to be adequate. She was then prepped and draped in the normal sterile fashion and placed in the dorsal supine position with a leftward tilt. A Pfan nenstiel skin incision was then made and carried through to the underlying layers of the fascia with the scalpel. The fascia was incised in the midline and the incision extended laterally with the Lewis scissors. The superior aspect of the fascial incision was then grasped with lisa clamps elevated and the underlying rectus muscles dissected off [bluntly]. Attention was then turned to the inferior aspect of the fascial incision which in a similar fashion was grasped, tented up with Lisa clamps, and the rectus muscles dissected off [bluntly]. The rectus muscles were then in the midline and the peritoneum at the amount identified and entered [bluntly]. The peritoneal incision was then extended superiorly and inferiorly with good visualization of the bladder. The bladder blade was inserted and the vesicouterine peritoneum identified grasped with Greek pickups and entered sharply with the Metzenbaum scissors. This incision was then extended laterally with the Metzenbaum scissors and a bladder flap created digitally. The bladder blade was then reinserted and the lower uterine segment incised in a transverse fashion with the scalpel. The uterine incision was then extended bluntly and a large amount of clot removed prior to baby. The bladder blade was removed and the 's head was delivered from cephalic presentation atraumatically. The nose and mouth were suctioned and the cord doubly clamped and cut. And the was handed off to waiting pediatricians. The placenta was then delivered spontaneously and the uterus exteriorized and cleared of all clots and debris. The uterine incision was then repaired with 1- 0 Vicryl in a running locked fashion. A second layer of the same suture was used to obtain hemostasis via imbrication of the initial layer. The bladder flap was then repaired with 3-0 chromic in a running fashion. The uterus was returned to the patient's abdomen and Interceed was placed overlying the uterine incision to prevent adhesions. The gutters were cleared of all clots and debris. All operative sites were noted to be hemostatic. The fascia was reapproximated with 0 Vicryl in a running fashion from each lateral edge to the midline. The skin was closed with 3-0 Monocryl in a running subcuticular fashion with overlying Dermabond for additional dressing as well as wound closure. The patient tolerated the procedure well. Sponge lap needle and instrument counts are correct times 2. 2 g of Ancef were given prior to skin incision. The patient was taken to the recovery area awake and in stable condition.
== END 2019-11-02 11:41 | disposition home or self-care (01) | DRG 788 ==
LOC: LC 16:59 → LR 19:25 → 2S 10-31 14:50
PROVIDERS: ADMIT Obstetrics & Gynecology Gynecology; ATTEND Obstetrics & Gynecology Gynecology
PROC: 10D00Z1 Extraction of Products of Conception, Low, Open Approach (ICD-10-PCS; principal; 2019-10-30)
DX: O14.14 Severe pre-eclampsia complicating childbirth (principal); O45.93 Premature separation of placenta, unspecified, third trimester; O76 Abnormality in fetal heart rate and rhythm complicating labor and delivery; O72.1 Other immediate postpartum hemorrhage; Z3A.36 36 weeks gestation of pregnancy; Z37.0 Single live birth
CPT/HCPCS: 1967; 1968; 36415; 76819; 80053; 80307; 81005; 82570; 83615; 84156; 84550; 85025; 85027; 85610; 85730; 86592; 86850; 86900; 86901; 88307; 94760; 94799; C1726; C1758; J0131; J0360; J0690; J0702; J1170; J1885; J1940; J2175; J2250; J2270; J2300; J2405; J2550; J2590; J3010; J3475; J3490

== ENCOUNTER 2020-04-14 14:36 | Emergency (ER) | payer MEDICAID ==
[2020-04-14] MEDS ORDERED: NORMAL SALINE 1000 ML 1,000 ML IV ONE (15:07)
[2020-04-14] MEDS ORDERED: DIPHENHYDRAMINE HCL 50 MG/ML VIAL IV ONE (15:08)
[2020-04-14] MEDS ORDERED: PROCHLORPERAZINE EDISYLATE INJ 10 MG/2 ML VIAL IV ONE (15:08)
--- NOTE | 2020-04-14 15:42 | ER Document Report ---
ED General - General Chief Complaint: Skin Problem Stated Complaint: SKIN ISSUE Time Seen by Provider: 04/14/20 14:43 Primary Care Provider: [facility] [Provider Group] - Follow up as needed Mode of Arrival: Ambulatory Information source: Patient Notes: Patient presents with a 1 week history of fever, headache and ear pain. She states she took a temperature of 102.3 earlier in the week although has not been measuring any temperatures recently although has been taking Tylenol for her headache pain. Patient states that she went to her doctor's office to get flu and strep tested although they told her that they were not listed as her primary doctor on her Medicaid card so she was not able to be seen. Patient reports a premature 5-month-old at home and does not want to bring anything home to the child. Patient denies any nausea vomiting diarrhea. Patient denies any cough or cold symptoms. Patient does complain of skin rash for the past 5 days. Patient reports frontal headache pain at this time. Patient states that the headache pain has varied in intensity since starting. TRAVEL OUTSIDE OF THE [place] IN LAST 30 DAYS: No - HPI Onset: Last week Onset/Duration: Persistent Quality of pain: Pressure Pain Level: 4 Associated symptoms: Earache, Fever, Headache. denies: Body/muscle aches, Nonproductive cough, Productive cough, Nausea, Shortness of breath Exacerbated by: Denies Relieved by: Denies Similar symptoms previously: No Recently seen / treated by doctor: No - Related Data Allergies/Adverse Reactions: No Known Allergies Allergy (Verified 10/29/19 17:50) Past Medical History - General Information source: Patient - Social History Smoking Status: Never Smoker Frequency of alcohol use: None Drug Abuse: None Occupation: None Lives with: Family Family History: Reviewed & Not Pertinent - Past Medical History Cardiac Medical History: Reports: Hx Hypertension - Borderline Denies: Hx Coronary Artery Disease, Hx Heart Attack Pulmonary Medical History: Denies: Hx Asthma, Hx Bronchitis, Hx COPD, Hx Pneumonia Neurological Medical History: Denies: Hx Cerebrovascular Accident, Hx Seizures Renal/ Medical History: Denies: Hx Peritoneal Dialysis Musculoskeletal Medical History: Denies Hx Arthritis Psychiatric Medical History: Reports: Hx Anxiety, Hx Attention Deficit Hyperactivity Disorder, Hx Depression, Hx Post Traumatic Stress Disorder Past Surgical History: Reports: Hx Abdominal Surgery - Gastric Bypass, Hx Gastric Bypass Surgery - 2013. Denies: Hx Hysterectomy - Immunizations Hx Diphtheria, Pertussis, Tetanus Vaccination: Yes Review of Systems - Review of Systems Constitutional: Fever EENT: Ear pain. denies: Eye pain Cardiovascular: No symptoms reported. denies: Chest pain Respiratory: No symptoms reported. denies: Cough, Short of breath Gastrointestinal: No symptoms reported. denies: Nausea, Vomiting Genitourinary: No symptoms reported Female Genitourinary: No symptoms reported Musculoskeletal: No symptoms reported. denies: Back pain Skin: Rash Hematologic/Lymphatic: No symptoms reported Neurological/Psychological: No symptoms reported, Headaches. denies: Weakness, Lost consciousness Physical Exam - Vital signs Vitals: Temp Pulse Resp BP Pulse Ox 98.2 F 109 H 16 159/99 H 98 04/14/20 14:54 04/14/20 14:54 04/14/20 14:54 04/14/20 14:54 04/14/20 14:54 - Notes Notes: PHYSICAL EXAMINATION: GENERAL: Well-appearing and in no acute distress. HEAD: Atraumatic, normocephalic. EYES: sclera anicteric, conjunctiva are normal. ENT: Posterior pharynx without exudates, nares patent. Moist mucous membranes. NECK: No meningismus, negative Brudzinski, normal range of motion, supple wit hout lymphadenopathy LUNGS: CTAB and equal. No wheezes rales or rhonchi. HEART: Regular rate and rhythm without murmurs EXTREMITIES: Normal range of motion, no pitting edema. BACK: No midline tenderness, no step-off or deformity. No CVA tenderness NEUROLOGICAL: Cranial nerves grossly intact. Normal speech. Normal gait. PSYCH: Normal mood, normal affect. SKIN: Warm, Dry, normal turgor, erythematous rash to the left breast, lower abdomen and bilateral upper thighs, portions of the rash to these areas appear petechial and nonblanching Course - Re-evaluation Re-evalutation: 04/14/20 17:58 Patient reports improvement of headache pain although not complete resolution. No meningismus, no objective fever, patient nontoxic in appearance, no concern for menigiococemia. Rash is pruritic. Patient with negative influenza and strep testing. Covid test is pending at this time. Patient presents with symptoms worrisome for possible Covid 19. Patient does not have emergency worrying symptoms such as difficulty breathing, shortness of breath, chest pain, pressure, confusion or cyanosis. Patient appears suitable for discharge as vital signs are stable and patient is nontoxic in appearance. Good return precautions have been discussed with patient, patient verbalized understanding and is agreeable with discharge plan of care at this time. The patient was evaluated during the global Covid 19 pandemic, and that diagn osis was suspected/considered upon their initial presentation. Their evaluation, treatment and testing was consistent with current guidelines for patients who present with complaints or symptoms that may be related to Covid 19. 04/14/20 18:[address] Sparks regarding patient presentation and diagnostic evaluation. He agrees with plan for [place] spotted fever testing and also advises covering with Augmentin for her symptoms. No additional testing advised at this time. - Vital Signs Vital signs: Temp Pulse Resp BP Pulse Ox 98.4 F 99 20 157/87 H 96 04/14/20 17:57 04/14/20 17:57 04/14/20 17:57 04/14/20 17:57 04/14/20 17:57 - Laboratory Result Diagrams: 04/14/20 15:38 04/14/20 15:38 Laboratory results interpreted by me: 04/14/20 15:38 Hgb 11.8 L MCV 72 L MCH 23.3 L RDW 19.3 H Labs- All tests 24 hr 04/14/20 04/14/20 04/14/20 15:38 15:38 15:38 WBC 6.4 RBC 5.05 Hgb 11.8 L Hct 36.3 MCV 72 L MCH 23.3 L MCHC 32.4 RDW 19.3 H Plt Count 320 Lymph % (Auto) 33.8 Bailey % (Auto) 5.5 Eos % (Auto) 1.6 Baso % (Auto) 0.6 Absolute Neuts (auto) 3.7 Absolute Lymphs (auto) 2.1 Absolute Monos (auto) 0.3 Absolute Eos (auto) 0.1 Absolute Basos (auto) 0.0 Seg Neutrophils % 58.5 Sodium 137.7 Potassium 4.5 Chloride 104 Carbon Dioxide 22 Anion Gap 12 BUN 14 Creatinine 0.68 Est GFR ( Amer) > 60 Est GFR (MDRD) Non-Af > 60 Glucose 93 Calcium 9.9 Total Bilirubin 0.4 Direct Bilirubin 0.0 Neonat Total Bilirubin Not Reportable Neonat Direct Bilirubin Not Reportable Neonat Indirect Bili Not Reportable AST 26 ALT 28 Alkaline Phosphatase 101 Total Protein 7.6 Albumin 4.6 COVID-19 Source Influenza A (Rapid) Influenza B (Rapid) Group A Strep Rapid NEGATIVE 04/14/20 04/14/20 15:38 15:38 WBC RBC Hgb Hct MCV MCH MCHC RDW Plt Count Lymph % (Auto) Bailey % (Auto) Eos % (Auto) Baso % (Auto) Absolute Neuts (auto) Absolute Lymphs (auto) Absolute Monos (auto) Absolute Eos (auto) Absolute Basos (auto) Seg Neutrophils % Sodium Potassium Chloride Carbon Dioxide Anion Gap BUN Creatinine Est GFR ( Amer) Est GFR (MDRD) Non-Af Glucose Calcium Total Bilirubin Direct Bilirubin Neonat Total Bilirubin Neonat Direct Bilirubin Neonat Indirect Bili AST ALT Alkaline Phosphatase Total Protein Albumin COVID-19 Source See comment Influenza A (Rapid) NEGATIVE Influenza B (Rapid) NEGATIVE Group A Strep Rapid - Diagnostic Test Radiology reviewed: Image reviewed, Reports reviewed Discharge - Discharge Clinical Impression: Otalgia of both ears, Skin rash Headache Qualifiers: Headache type: unspecified Headache chronicity pattern: unspecified pattern Intractability: not intractable Qualified Code(s): R51.9 - Headache, unspecified Condition: Stable Disposition: HOME, SELF-CARE Instructions: COVID-19 Guidance for Persons Under Investigation, Augmentin ([facility]), Headache ([facility]) Additional Instructions: Return immediately for any new or worsening symptoms: Persistent fever, worsening skin rash, new or concerning symptoms Followup with your primary care provider, call tomorrow to make a followup appointment Prescriptions: Triamcinolone Acetonide [Aristocort 0.1% Cream] 1 applic TP TID #60 gm Amoxicillin/Potassium Clav [Augmentin 875-125 Tablet] 1 tab PO BID #20 tab Butalb/Acetaminophen/Caffeine [Fioricet (50-325-40 mg) Tablet] 1 - 2 tab PO Q4H PRN #10 each PRN Reason: Ondansetron [Zofran Odt 4 mg Tablet] 1 tab PO Q6H #15 tab.rapdis Referrals: [facility] [Provider Group] - Follow up as needed
[2020-04-14 16:02] LABS: ABSOLUTE EOSINOPHILS # (AUTO) 0.1 10^3/uL (0.0-0.6); ABSOLUTE LYMPHOCYTES (AUTO) 2.1 10^3/uL (0.5-4.7); ABSOLUTE MONOCYTES (AUTO) 0.3 10^3/uL (0.1-1.4); ABSOLUTE NEUT (AUTO) 3.7 10^3/uL (1.7-8.2); BASOPHILS % (AUTO) 0.6 % (0-2); EOSINOPHILS % (AUTO) 1.6 % (0-6); HEMATOCRIT 36.3 % (36.0-47.0); HEMOGLOBIN 11.8 g/dL (12.0-15.5); LYMPHOCYTES % (AUTO) 33.8 % (13-45); MEAN CORPUSCULAR HEMOGLOBIN 23.3 pg (27.0-33.4); MEAN CORPUSCULAR HGB CONC 32.4 g/dL (32.0-36.0); MEAN CORPUSCULAR VOLUME 72 fl (80-97); MONOCYTES % (AUTO) 5.5 % (3-13); PLATELET COUNT 320 10^3/uL (150-450); RED BLOOD COUNT 5.05 10^6/uL (3.72-5.28); RED CELL DISTRIBUTION WIDTH 19.3 % (11.5-14.0); SEGMENTED NEUTROPHILS % (AUTO) 58.5 % (42-78); TOTAL CELLS COUNTED % (AUTO) 100 %; WHITE BLOOD COUNT 6.4 10^3/uL (4.0-10.5)
[2020-04-14 16:17] LABS: A TYPE INFLUENZA AG NEGATIVE (NEGATIVE); B INFLUENZA AG NEGATIVE (NEGATIVE)
[2020-04-14 16:22] LABS: ALBUMIN 4.6 g/dL (3.5-5.0); ALKALINE PHOSPHATASE 101 U/L (38-126); ANION GAP 12 (5-19); ASPARTATE AMINO TRANSFERASE 26 U/L (14-36); BILIRUBIN,TOTAL 0.4 mg/dL (0.2-1.3); BLOOD UREA NITROGEN 14 mg/dL (7-20); CALCIUM 9.9 mg/dL (8.4-10.2); CARBON DIOXIDE 22 mmol/L (22-30); CHLORIDE 104 mmol/L (98-107); GLUCOSE 93 mg/dL (75-110); POTASSIUM 4.5 mmol/L (3.6-5.0); TOTAL PROTEIN 7.6 g/dL (6.3-8.2)
[2020-04-14] MEDS ORDERED: MORPHINE SULFATE 10 MG/ML INJ IV ONE (16:39)
[2020-04-14 18:02] VITALS: BP 157/87
[2020-04-14] MEDS ORDERED: AMOXICILLIN TR/POT CLAVULANATE 875-125 MG TAB PO ONE (18:27)
[2020-04-14] MEDS ORDERED: ONDANSETRON 4 MG TAB.RAPDIS PO ONE (18:27)
[2020-04-14] MEDS ORDERED: BUTALB/ACETAMINOPHEN/CAFFEINE 1 TAB EACH PO ONE (19:04)
== END 2020-04-14 19:18 | disposition home or self-care (01) ==
LOC: ER 14:36
DX: R51.9 Headache, unspecified (principal); R50.9 Fever, unspecified; H92.03 Otalgia, bilateral; R21 Rash and other nonspecific skin eruption; L29.8 Other pruritus; Z20.828 Contact with and (suspected) exposure to other viral communicable diseases
CPT/HCPCS: 99284; 96361; 96374; 96375; 36415; 87070; 87880; 85025; 87635; 80053; 86757 ×2; 87804; J3490 ×2; J1200; S0119; J2270; J0780; J7030; C9803